=== PATIENT | female | born 1995 | race Two or more races ===

== ENCOUNTER → 2020-08-21 12:58 | Outpatient (BNVA) | payer OTHER, SELFPAY | PROVIDERS: Visit Provider Advanced Practice Midwife | DX: Z30.42 Encounter for surveillance of injectable contraceptive (principal) | CPT/HCPCS: 99211 ==

== ENCOUNTER → 2020-11-16 11:01 | Outpatient (BNVA) | payer OTHER, SELFPAY | PROVIDERS: PCP Internal Medicine; Visit Provider Advanced Practice Midwife | DX: Z30.42 Encounter for surveillance of injectable contraceptive (principal) | CPT/HCPCS: 96372; 99211; J1050 ==

== ENCOUNTER 2021-02-07 14:56 | Outpatient (REF) | payer OTHER, SELFPAY ==
[2021-02-08 09:36] LABS: CT PCR NOT DETECTED (Not Detect.); NG PCR NOT DETECTED (Not Detect.)
[2021-02-08 09:53] LABS: BV Int Neg Control Negative (Negative); BV Int Pos Control Positive (Positive)
== END 2021-02-07 14:57 | disposition home or self-care (01) ==
LOC: HO.LAB 14:56
PROVIDERS: Visit Provider Advanced Practice Midwife
DX: Z01.419 Encounter for gynecological examination (general) (routine) without abnormal findings (principal); F41.8 Other specified anxiety disorders; Z20.2 Contact with and (suspected) exposure to infections with a predominantly sexual mode of transmission; Z79.899 Other long term (current) drug therapy
CPT/HCPCS: 87480; 87491; 87510; 87591; 87660

== ENCOUNTER → 2021-02-19 14:33 | Outpatient (BNVA) | payer OTHER, SELFPAY | PROVIDERS: PCP Nurse Practitioner Family; Visit Provider Advanced Practice Midwife | DX: Z30.42 Encounter for surveillance of injectable contraceptive (principal) | CPT/HCPCS: 96372; 99211; J1050 ==

== ENCOUNTER 2021-06-28 09:02 | Outpatient (REF) | payer OTHER, SELFPAY ==
[2021-06-28 09:41] LABS: COVID-19 Test Negative (Negative)
== END 2021-06-28 09:03 | disposition home or self-care (01) ==
LOC: HO.LAB 09:02
PROVIDERS: Visit Provider Internal Medicine
DX: Z20.822 Contact with and (suspected) exposure to COVID-19 (principal)
CPT/HCPCS: 36415; 87635; C9803

== ENCOUNTER → 2021-07-24 14:36 | Outpatient (BNVA) | payer OTHER, SELFPAY | PROVIDERS: Visit Provider Advanced Practice Midwife | DX: Z30.42 Encounter for surveillance of injectable contraceptive (principal) | CPT/HCPCS: 81025; 96372; 99212 ==

== ENCOUNTER → 2021-09-10 10:00 | Outpatient (BNVA) | payer OTHER, SELFPAY | PROVIDERS: Visit Provider Advanced Practice Midwife | DX: Z30.017 Encounter for initial prescription of implantable subdermal contraceptive (principal) | CPT/HCPCS: 11981; 81025; J7307 ==

== ENCOUNTER 2022-02-19 09:42 | Outpatient (REF) | payer OTHER, SELFPAY ==
--- NOTE | ~2022-02-19 | US_ITS ---
EXAMINATION: US ABDOMEN COMPLETE CLINICAL INFORMATION: Right upper quadrant pain. COMPARISON: None TECHNIQUE: Real-time imaging of the abdominal viscera. FINDINGS: PANCREAS: Normal. ABDOMINAL AORTA: The proximal, mid, and distal segments are normal in caliber. INFERIOR VENA CAVA: Visualized portions are normal. LIVER: There is a hyperechoic area seen in the left lobe measuring 0.75 x 0.62 x 0.60 cm suggestive of hemangioma. No additional lesions seen. The liver is normal in size. The liver contour is normal. Parenchymal echogenicity is normal. There is no intrahepatic biliary duct dilatation seen. GALLBLADDER: The gallbladder wall thickness measures 0.33 cm. The gallbladder is physiologically distended. Multiple mobile gallstones are present. No evidence of gallbladder wall thickening or pericholecystic fluid. COMMON BILE DUCT: Normal in caliber measuring 0.17 cm in diameter. RIGHT KIDNEY: Normal. No hydronephrosis. No renal calculi or focal parenchymal lesions. The kidney measures 9.6 cm in maximum dimension. LEFT KIDNEY: Normal. No hydronephrosis. No renal calculi or focal parenchymal lesions. The kidney measures 10.0 cm in maximum dimension. SPLEEN: Normal. The spleen measures 8.4 cm in maximum dimension. FREE FLUID: None. US/US abdomen complete IMPRESSION: Cholelithiasis with borderline normal gallbladder wall. Small hemangioma left hepatic lobe. Rest of the abdominal ultrasound is unremarkable.
[2022-02-19 10:42] LABS: MANUAL DIFF FLAG NO
[2022-02-19 11:17] LABS: Basophils Absolute Auto 0.1 X10*3/uL (0.0-0.2); Basophils Percent Auto 0.5 % (0-2); Eosinophils Absolute Auto 0.2 X10*3/uL (0.0-0.4); Eosinophils Percent Auto 2.2 % (0-4); Hematocrit 43.3 % (37.0-47.0); Hemoglobin 14.6 g/dl (12.0-16.0); Imm Gran Abs Auto 0.03 X10*3/uL (0.00-0.03); Imm Gran Pct Auto 0.3 % (0.0-0.4); Lymphocytes Percent Auto 18.3 % (20-40); Mean Corpuscular HGB Conc 33.7 g/dl (31.0-35.0); Mean Corpuscular Hemoglobin 31.7 pg (27.0-33.0); Mean Corpuscular Volume 94.1 fL (80.0-98.0); Mean Platelet Volume 9.5 fL (9.4-12.3); Monocytes Absolute Auto 0.6 X10*3/uL (0.1-1.2); Monocytes Percent Auto 5.3 % (2-11); Neutrophils Absolute Auto 7.9 x10*3/uL (2.0-8.3); Neutrophils Percent Auto 73.4 % (45-73); Platelet Count 356 X10*3/uL (160-400); White Blood Count 10.8 X10*3/uL (4.8-10.8)
[2022-02-19 11:39] LABS: Alanine Aminotransferase 33 U/L (0-31); Albumin Level 4.5 g/dL (3.5-5.0); Alkaline Phosphatase 57 U/L (39-117); Anion Gap 10 (12-20); Aspartate Amino Transferase 22 U/L (5-31); Bilirubin Total 0.8 mg/dL (0.0-1.0); Blood Urea Nitrogen 14 mg/dL (9-16); Calcium 10.4 mg/dL (8.4-10.2); Carbon Dioxide 26 mmol/L (22-29); Chloride 106 mmol/L (96-108); Cholesterol 104 mg/dL; Estimated Glomerular Filt Rate > 60; Glucose Fasting 97 mg/dL (60-99); HDL Cholesterol 37 mg/dL; LDL Cholesterol Calculated 51 mg/dl; Potassium 4.1 mmol/L (3.3-5.1); Sodium 138 mmol/L (135-145); Total Protein 7.1 g/dL (6.5-8.0); Triglycerides 80 mg/dL
[2022-02-19 11:56] LABS: TSH reflex Free T4 2.05 uIU/mL (0.32-4.0)
== END 2022-02-19 09:43 | disposition home or self-care (01) ==
LOC: HO.US 09:42
PROVIDERS: PCP Nurse Practitioner Family; Visit Provider Nurse Practitioner Family
DX: R10.11 Right upper quadrant pain (principal); F32.9 Major depressive disorder, single episode, unspecified; F41.9 Anxiety disorder, unspecified; I10 Essential (primary) hypertension; E78.00 Pure hypercholesterolemia, unspecified; Z76.89 Persons encountering health services in other specified circumstances
CPT/HCPCS: 36415; 76700; 80053; 80061; 84443; 85025

== ENCOUNTER → 2022-03-06 09:09 | Outpatient (BNVA) | payer OTHER, SELFPAY | PROVIDERS: PCP Nurse Practitioner Family; Referring Provider Nurse Practitioner Family; Visit Provider Surgery | DX: K80.20 Calculus of gallbladder without cholecystitis without obstruction (principal) | CPT/HCPCS: 99202 ==

== ENCOUNTER 2022-04-05 07:27 | Day surgery (SDC) | payer OTHER, SELFPAY ==
[2022-03-29 13:17] VITALS: BMI 27.0
--- NOTE | 2022-04-04 08:00 | P.CONAN_ITS ---
Documented by User: Annika Stein NP 04/04/22 08:02 HPI - Anesthesia Eval Consult details Narrative: 26yo F for Cholecystectomy Laparoscopic possible open PMFSH Active Problems Active Problems: All Active Problems (Updated 03/29/22 @ 13:20 by Giselle Rodriguez RN) Encounter to establish care (Acute) Right upper quadrant abdominal pain (Acute) Allergic reaction (Acute) Cholelithiasis (Acute) Anxiety and depression (Acute) Past Medical History Medical History (Updated 04/05/22 @ 07:32 by Holly Wooten RN) COVID-19 vaccine series completed GERD (gastroesophageal reflux disease) Family History Family History Father No problems noted. Paternal Grandmother Brain tumor Mother No problems noted. Family/Other Dementia Hypertension Cancer Brother In good health Daughter In good health Surgical History Surgical History No pertinent past surgical history Social History Social History Household Members Other:: minor child Housing: [facility] Are you a primary transition of care specialist to a significant other at home: Yes Do you presently have visiting nurse or other home services: No Alcohol intake: current Alcohol intake frequency: holidays/special occasions only Patient Tobacco Use Status: Never used Tobacco e-Cigarette/Vaping Use: Never Used Substance Use Type: Marijuana service: No Current occupational status: employed Gender identity: Female Cognitive needs: No Hearing needs: No Vision needs: No Meds Allergies Allergy/AdvReac Type Severity Reaction Status Date / Time shrimp Allergy Intermediate hive Verified 03/06/22 09:18 Home Medications Medication Instructions Recorded Confirmed Last Taken Type multivitamin 1 tab PO DAILY 12/14/20 03/29/22 Unknown History etonogestrel 68 mg subdermal 1 implant subdermal ONCE 03/06/22 03/29/22 Unknown History implant (Nexplanon) Exam Exam Date and Time: April 04, 2022 0800 Height,Weight and Vital Signs: Height 4 ft 11 in Weight 60.781 kg Pertinent Lab Results Pertinent Lab Results: Laboratory Tests 02/19/22 02/19/22 10:41 10:41 WBC 10.8 Hgb 14.6 Hct 43.3 Plt Count 356 Sodium 138 Potassium 4.1 Chloride 106 Carbon Dioxide 26 BUN 14 Creatinine 0.83 Laboratory Tests 02/19/22 10:41 Calcium 10.4 H Total Bilirubin 0.8 AST 22 ALT 33 H Alkaline Phosphatase 57 Total Protein 7.1 Albumin 4.5 Assessment and Plan Assessment Anesthesia Assessment: Chart Reviewed Documented by User: Alfa Somers MD 04/05/22 13:10 [facility] Past Medical History Medical History (Updated 04/05/22 @ 07:32 by Holly Wooten RN) COVID-19 vaccine series completed GERD (gastroesophageal reflux disease) Functional capacity: independent ambulation Family History Family History Father No problems noted. Paternal Grandmother Brain tumor Mother No problems noted. Family/Other Dementia Hypertension Cancer Brother In good health Daughter In good health Family history of problems with anesthesia: No Surgical History Surgical History No pertinent past surgical history History of Problems with Anesthesia: No Social History Social History Household Members Other:: minor child [facility] Are you a primary transition of care specialist to a significant other at home: Yes Do you presently have visiting nurse or other home services: No Alcohol intake: current Alcohol intake frequency: holidays/special occasions only Patient Tobacco Use Status: Never used Tobacco e-Cigarette/Vaping Use: Never Used Substance Use Type: Marijuana service: No Current occupational status: employed Gender identity: Female Cognitive needs: No Hearing needs: No Vision needs: No Meds Allergies Allergy/AdvReac Type Severity Reaction Status Date / Time shrimp Allergy Intermediate hive Verified 03/06/22 09:18 Home Medications Medication Instructions Recorded Confirmed Last Taken Type multivitamin 1 tab PO DAILY 12/14/20 03/29/22 Unknown History etonogestrel 68 mg subdermal 1 implant subdermal ONCE 03/06/22 03/29/22 Unknown History implant (Nexplanon) Exam Airway Mallampati Class: II TM Dist: >3cm Neck ROM: Full Loose/Missing/Broken Teeth: Yes (Chipped teeth ) Heart: S1,S2 Lungs: b/l breath sounds Assessment and Plan Assessment Anesthesia Assessment: Anesthesia Plan Discussed Final Anesthetic Review Family History of Problems with Anesthesia: No History of Problems with Anesthesia: No NPO: Yes ASA Class: II Final Preanesthetic Review: Meds/Allgs Chart Reviewed, Consent Obtained/Reviewed and Anes Risks/Benef Reviewed Patient Risk: Intermediate Procedure Risk: Intermediate Anesthetic Plan Anesthetic Plan: GA Disposition: Standard PACU
[2022-04-05] VITALS (11 sets, daily range): BP systolic 115–130; BP diastolic 69–89; PULSE 71–98; RESP 16–20; TEMP 36.4–36.6; O2SAT 97–100
[2022-04-05 07:50] LABS: UPreg QC Valid YES; Urine Pregnancy NEGATIVE (NEGATIVE)
[2022-04-05] MEDS: Acetaminophen 325 MG TABLET 650 MG PO (08:03)
--- NOTE | 2022-04-05 08:04 | MHC.SHP ---
Pre-Procedural Eval Section A Date of Service: 04/05/22 Section B Chief Complaint: calculus of gallbladder Details of Present Illness: has had periodic right upper quadrant pain, with gallstones Relevant Family History (Specify if Yes): No Relevant Social History: None Present Medications: None Medical History: No relevant PMH History of Previous Operations: No relevant previous surgery Allergies: Allergies Allergy/AdvReac Type Severity Reaction Status Date / Time shrimp Allergy Intermediate hive Verified 03/06/22 09:18 Review of Systems Sugical H&P ROS: Negative: Constitution, Cardiovascular, Respiratory, Neurological, Psychiatric, Hem-Onc, Allergic/Immunologic, Gastrointestinal, Genitourinary, Musculoskeletal, Integumentary, Endocrine and Eyes/Ears/Nose/Throat Exam Surgical H&P Exam: Normal: HEENT, Normal: Heart, Normal: Lungs, Normal: Extremities, Normal: Abdomen, Normal: Skin and Normal: Neurological Plan Diagnosis/Plan: Unchanged I have reviewed the history and physical and performed a pertinent physical examination on my patient. No changes have occurred unless specified.
[2022-04-05] MEDS: Lactated Ringers 1,000 ML 100 ML IVCONT (08:10)
--- NOTE | 2022-04-05 09:55 | P.OP_ITS ---
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 In view of her symptoms she wanted to proceed with cholecystectomy. She understood the technique of laparoscopic cholecystectomy and possible open. She was aware of the risks, benefits, and alternatives. She was brought to the operating room. She was placed supine under general anesthesia via endotracheal tube. The abdomen was prepped and draped in the usual sterile fashion. A surgical time-out was done. The patient received Cefotan 2 g IV preoperatively . I made a short supraumbilical incision using blade 15. This was carried down through the full-thickness of the skin and the subcutaneous layer down to the fascia. The fascia was incised. The peritoneum was entered. Through this incision should, a Faby port was introduced. Pneumoperitoneum was introduced to a pressure of 15 mm hg. From here on, the rest of the procedure was done under vision with the 10 mm flat laparoscope. With laparoscopic visualization, I proceeded to insert a 5/12 mm port in the epigastric area below the subcostal margin by a small stab incision. Two 5 mm ports were introduced a small incisions below the subcostal margin along the anterior axillary line. Graspers were placed through these working ports. The patient was placed in head-up and [id number] position. The gallbladder was seen laparoscopically. This was noted to be supple and non inflamed. I applied a grasper at the fundus to retract the gallbladder cephalad. Another grasper applied to the pouch of the gallbladder and this was used to retract the gallbladder laterally. At this point therefore the gallbladder was being retracted in a cephalad fashion to the cystic duct on stretch. I carefully dissected the fatty areolar tissue surrounding the neck of the gallbladder and by doing so I was able to visualize the cystic duct. I carefully defined the duct using the [place] dissector to confirm its confluence with the neck of the gallbladder. By doing so was able to give a critical view of the hepatocystic triangle. There was note of a via find cystic artery alongside this. There was no other structure in the area I therefore applied clips on the cystic duct with 2 clips being applied distally. The cystic duct was transected between clips with Endo scissors. I carefully define the cystic artery. This was then clipped with 2 clips being applied distally and this was obstructive in clips as well I carefully divided across the rest of the hilum using the electrocautery spatula. At 1 point we encountered fine branch of the artery which we had to clip as well We continued to dissect across the hilum into the interface of the gallbladder wall and the liver bed. I incised the peritoneum using electrocautery with the spatula define a plane of dissection between the gallbladder wall and the liver bed using a combination of blunt dissection with the tip of the spatula and electrocautery. Fully the gallbladder along this well-defined plane of dissection all the way to the fundus until the entire gallbladder was completely . The gallbladder was retrieved through an endobag through the umbilical incision I reinserted all ports and re-insufflated. I examined the liver bed and the subhepatic space. There was no evidence of any bleeding I examined all 4 quadrants. There was no other pathology or any evidence of any bowel injury Once hemostasis was ensured, I desufflated the port sites. I removed all ports under vision with the laparoscope. The umbilical port was removed last. The fascia of the umbilical incision was closed with [id number] Dexon 0 stitch. Skin closure was achieved on all incisions using Dexon 4-0 subcuticular running sutures. Steri-Strips and dressings were applied. All incisions were infiltrated with Marcaine 0.5% for postop analgesia. The procedure was then completed The patient tolerated procedure well. There were no complications noted. Initial and final counts of sponges and instruments were correct. Estimated blood loss was about 30 cc. The patient is extubated without difficulty and transferred to the recovery room with stable vital signs.
[2022-04-05] MEDS: fentaNYL citrate/PF 100 MCG/2 ML VIAL 25 MCG IVPUSH (11:13)
== END 2022-04-05 12:15 | disposition home or self-care (01) ==
PROVIDERS: Nurse Practitioner; PCP Nurse Practitioner Family; Visit Provider Surgery
PROC: 0FT44ZZ Resection of Gallbladder, Percutaneous Endoscopic Approach (ICD-10-PCS; CPT 47562; principal; 2022-04-05 09:00)
DX: K80.10 Calculus of gallbladder with chronic cholecystitis without obstruction (principal); F41.8 Other specified anxiety disorders; K21.9 Gastro-esophageal reflux disease without esophagitis; Z79.899 Other long term (current) drug therapy
CPT/HCPCS: 47562; 81025; 88304; J1100; J1885; J2250; J2405; J2550; J3010

== ENCOUNTER 2022-04-26 13:33 | Emergency (ER) | payer OTHER, SELFPAY ==
[2022-04-26 13:55] VITALS: BP 123/77; PULSE 77; RESP 18; TEMP 36.4; O2SAT 100; BMI 27.4
[2022-04-26] MEDS: Ondansetron ODT 4 MG TAB.RAPDIS TRANSLINGU (14:00)
--- NOTE | 2022-04-26 15:10 | ED.SKABFB ---
HPI - Skin/Abscess/Foreign Bdy General Chief complaint: Skin/Abscess/Foreign Body Stated complaint: Bug bite R foot swollen/nausea Time Seen by Provider: 04/26/22 15:10 History of Present Illness HPI narrative: Patient complains of bug bite to right foot which itches She has no shortness of breath no swelling of throat no difficulty breathing or swallowing no other rash Related Data Home Medications Medication Instructions Recorded Confirmed multivitamin 1 tab PO DAILY 12/14/20 03/29/22 etonogestrel 68 mg subdermal 1 implant subdermal ONCE 03/06/22 03/29/22 implant (Nexplanon) Previous Rx's Medication Instructions Recorded epinephrine 0.3 mg/0.3 mL 0.3 mg (0.3 mL) IM Q10M PRN 01/24/22 injection, auto-injector (EpiPen) anaphylaxis #1 ea loratadine 10 mg tablet 10 mg PO DAILY #30 tabs 01/24/22 omeprazole 20 mg capsule,delayed 20 mg PO DAILY #30 caps 01/24/22 release fluticasone propionate 50 1 spray intranasal DAILY #16 mL 03/27/22 mcg/actuation nasal spray,suspension oxycodone-acetaminophen 5 mg-325 1 tab PO Q4-6H PRN pain #30 tabs 04/05/22 mg tablet (Percocet) hydrocortisone 2.5 % topical cream 1 appl topical BID PRN itching #20 04/26/22 grams Allergies Allergy/AdvReac Type Severity Reaction Status Date / Time shrimp Allergy Intermediate hive Verified 04/18/22 09:13 Review of Systems Review of Systems: Positive right foot but bite Negatives are no fever no chills no dizziness no weakness no fainting no feeling faint no throat swelling no difficulty breathing or swallowing no difficulty speaking no chest pain no shortness of breath no abdominal pain no vomiting no other rash no joint swelling Yes all other systems are reviewed and are negative PMFSH Past Medical History Source: nursing notes reviewed Medical History Anxiety and depression COVID-19 vaccine series completed GERD (gastroesophageal reflux disease) Surgical History History of laparoscopic cholecystectomy Family History Family History Father No problems noted. Paternal Grandmother Brain tumor Mother No problems noted. Family/Other Dementia Hypertension Cancer Brother In good health Daughter In good health Social History Social History Household Members Other:: minor child Housing: Condominium Are you a primary janitor caretaker to a significant other at home: Yes Do you presently have visiting nurse or other home services: No Alcohol intake: current Alcohol intake frequency: holidays/special occasions only Patient Tobacco Use Status: Never used Tobacco e-Cigarette/Vaping Use: Never Used Substance Use Type: Marijuana Advance Directives: No Advance Directives Information Provided: No service: No Current occupational status: employed Gender identity: Female Cognitive needs: No Hearing needs: No Vision needs: No Physical Exam Vital Signs: Vital Signs: Last Vital Signs Temp 97.5 F 04/26/22 13:55 Pulse 77 04/26/22 13:55 Resp 18 04/26/22 13:55 BP 123/77 04/26/22 13:55 Pulse Ox 100 04/26/22 13:55 BMI result Body Mass Index 27.4 General appearance comfortable no distress Head is normocephalic atraumatic Eyes pupils equal round reactive to light no redness no discharge The pharynx no redness no swelling no swelling of tongue uvula or lips, no drooling voice is normal, membranes are moist Neck is supple Chest is clear to auscultation with full symmetrical equal breath sounds bilaterally Heart no murmur Extremities full range of motion x4 The right foot had a dime-sized area of redness and mild induration no tenderness around the area of the insect bite there was no other erythema no other swelling, she walks easily, skin is intact Skin no other rash except the right foot Course Course Course Narrative: Patient with a local reaction to a biting insect, no sign of anaphylaxis or any systemic reaction Discharge Plan Discharge Clinical Impression: Insect bite Patient Disposition: Home, Self-Care Additional Instructions: There is no sign of any significant allergic reaction, no sign of any dangerous reaction This is a mild local reaction within the right foot to the insect bite As it itches we gave an antihistamine Return any time any worse condition or any concerns Prescriptions: New hydrocortisone 2.5 % cream 1 appl topical BID PRN (Reason: itching) Qty: 20 0RF No Action fluticasone propionate 50 mcg/actuation spray,suspension 1 spray intranasal DAILY Qty: 16 0RF oxycodone-acetaminophen [Percocet] 5-325 mg tablet 1 tab PO Q4-6H PRN (Reason: pain) Qty: 30 0RF Rx Instructions: Partial Fill upon patient request. multivitamin Tablet 1 tab PO DAILY epinephrine [EpiPen] 0.3 mg/0.3 mL auto-injector 0.3 mg IM Q10M PRN (Reason: anaphylaxis) Qty: 1 1RF Rx Instructions: for 2 doses loratadine 10 mg tablet 10 mg PO DAILY Qty: 30 2RF omeprazole 20 mg capsule,delayed release(DR/EC) 20 mg PO DAILY Qty: 30 1RF Nexplanon 68 mg implant 1 implant subdermal ONCE
[2022-04-26] MEDS: Loratadine 10 MG TABLET PO (15:24)
== END 2022-04-26 16:28 | disposition home or self-care (01) ==
PROVIDERS: Emergency Provider Emergency Medicine; PCP Nurse Practitioner Family
DX: S90.861A Insect bite (nonvenomous), right foot, initial encounter (principal); W57.XXXA Bitten or stung by nonvenomous insect and other nonvenomous arthropods, initial encounter; Y93.9 Activity, unspecified; Y92.511 Restaurant or cafe as the place of occurrence of the external cause; Y99.0 Civilian activity done for income or pay
CPT/HCPCS: 99283

== ENCOUNTER 2022-08-27 10:11 | Outpatient (REF) | payer OTHER, SELFPAY ==
[2022-08-27 10:23] LABS: MANUAL DIFF FLAG NO
[2022-08-27 10:35] LABS: Basophils Absolute Auto 0.1 X10*3/uL (0.0-0.2); Basophils Percent Auto 0.4 % (0-2); Eosinophils Absolute Auto 0.1 X10*3/uL (0.0-0.4); Hematocrit 40.6 % (37.0-47.0); Hemoglobin 13.1 g/dl (12.0-16.0); Imm Gran Abs Auto 0.05 X10*3/uL (0.00-0.03); Imm Gran Pct Auto 0.4 % (0.0-0.4); Lymphocytes Absolute Auto 2.1 X10*3/uL (1.2-4.9); Lymphocytes Percent Auto 15.2 % (20-40); Mean Corpuscular HGB Conc 32.3 g/dl (31.0-35.0); Mean Corpuscular Hemoglobin 30.1 pg (27.0-33.0); Mean Corpuscular Volume 93.3 fL (80.0-98.0); Monocytes Absolute Auto 0.7 X10*3/uL (0.1-1.2); Monocytes Percent Auto 5.3 % (2-11); Neutrophils Absolute Auto 10.8 x10*3/uL (2.0-8.3); Neutrophils Percent Auto 77.7 % (45-73); Platelet Count 328 X10*3/uL (160-400); Red Blood Count 4.35 X10*6/uL (4.20-5.50); Red Cell Distribution Width 12.2 % (11.0-16.0); White Blood Count 13.9 X10*3/uL (4.8-10.8)
[2022-08-27 11:14] LABS: Alanine Aminotransferase 93 U/L (0-31); Alkaline Phosphatase 61 U/L (39-117); Anion Gap 10 (12-20); Aspartate Amino Transferase 37 U/L (5-31); Bilirubin Total 0.5 mg/dL (0.0-1.0); Blood Urea Nitrogen 11 mg/dL (9-16); Calcium 9.4 mg/dL (8.4-10.2); Carbon Dioxide 24 mmol/L (22-29); Chloride 107 mmol/L (96-108); Estimated Glomerular Filt Rate > 60; Glucose Random 91 mg/dL (60-115); Sodium 137 mmol/L (135-145); Total Protein 6.3 g/dL (6.5-8.0)
[2022-08-27 11:37] LABS: Lipase 35 U/L (8-78)
== END 2022-08-27 10:12 | disposition home or self-care (01) ==
LOC: HO.LAB 10:11
PROVIDERS: PCP Nurse Practitioner Family; Visit Provider Nurse Practitioner Family
DX: R19.7 Diarrhea, unspecified (principal)
CPT/HCPCS: 36415; 80053; 83690; 85025

== ENCOUNTER 2022-09-02 | Outpatient (REF) | payer OTHER, SELFPAY ==
[2022-09-03 13:36] LABS: Leukocytes Stool Qualitative NEGATIVE (NEGATIVE)
[2022-09-03 13:48] LABS: CDiff Gene PCR NEGATIVE (Negative)
== END 2022-09-02 00:01 | disposition home or self-care (01) ==
LOC: HO.LNP
PROVIDERS: Visit Provider Nurse Practitioner Family
DX: R19.7 Diarrhea, unspecified (principal)
CPT/HCPCS: 87177; 87209; 87493; 89055

== ENCOUNTER 2022-09-16 10:13 | Outpatient (REF) | payer OTHER, SELFPAY ==
[2022-09-16 10:25] LABS: MANUAL DIFF FLAG NO
[2022-09-16 10:59] LABS: Basophils Percent Auto 0.3 % (0-2); Eosinophils Absolute Auto 0.1 X10*3/uL (0.0-0.4); Eosinophils Percent Auto 1.2 % (0-4); Hematocrit 41.4 % (37.0-47.0); Hemoglobin 13.6 g/dl (12.0-16.0); Imm Gran Abs Auto 0.05 X10*3/uL (0.00-0.03); Imm Gran Pct Auto 0.4 % (0.0-0.4); Lymphocytes Absolute Auto 2.1 X10*3/uL (1.2-4.9); Lymphocytes Percent Auto 17.3 % (20-40); Mean Corpuscular HGB Conc 32.9 g/dl (31.0-35.0); Mean Corpuscular Hemoglobin 30.5 pg (27.0-33.0); Mean Corpuscular Volume 92.8 fL (80.0-98.0); Mean Platelet Volume 9.8 fL (9.4-12.3); Monocytes Absolute Auto 0.6 X10*3/uL (0.1-1.2); Monocytes Percent Auto 4.6 % (2-11); Neutrophils Absolute Auto 9.2 x10*3/uL (2.0-8.3); Neutrophils Percent Auto 76.2 % (45-73); Platelet Count 360 X10*3/uL (160-400); Red Blood Count 4.46 X10*6/uL (4.20-5.50); Red Cell Distribution Width 12.5 % (11.0-16.0)
[2022-09-16 12:30] LABS: HBS Num1 > 1000.00 mIU/mL (0-7.99); HBc Num1 0.08 S/CO (0.00-0.79); HBsAGNum1 0.35 S/CO (0.00-0.99); Hepatitis A Antibody IgM 0.11 Index (0-0.79); Hepatitis B Core Antibody Nonreactive (Nonreactive); Hepatitis B Surface Antigen Negative (Negative); ~HepC Num1 0.23 S/CO (0.00-0.79); ~Hepatitis A Antibody IgM Nonreactive (Nonreactive); ~Hepatitis B Surface Antibody REACTIVE (Nonreactive); ~Hepatitis C Antibody Nonreactive (Nonreactive)
== END 2022-09-16 10:14 | disposition home or self-care (01) ==
LOC: HO.LAB 10:13
PROVIDERS: PCP Nurse Practitioner Family; Visit Provider Nurse Practitioner Family
DX: R79.89 Other specified abnormal findings of blood chemistry (principal); R19.7 Diarrhea, unspecified; D72.829 Elevated white blood cell count, unspecified
CPT/HCPCS: 36415; 85025; 86704; 86706; 86709; 86803; 87340

== ENCOUNTER → 2022-10-16 14:34 | Outpatient (BNVA) | payer OTHER, SELFPAY | PROVIDERS: PCP Nurse Practitioner Family; Visit Provider Physician Assistant | DX: K21.9 Gastro-esophageal reflux disease without esophagitis (principal); R14.0 Abdominal distension (gaseous) | CPT/HCPCS: 99202 ==

== ENCOUNTER 2022-12-23 10:05 | Outpatient (REF) | payer OTHER, SELFPAY ==
--- NOTE | ~2022-12-23 | US_ITS ---
EXAMINATION: US ABDOMEN COMPLETE CLINICAL INFORMATION: Abdominal distension (gaseous). COMPARISON: Ultrasound abdomen complete 02/19/2022. TECHNIQUE: Real-time imaging of the abdominal viscera. FINDINGS: PANCREAS: Normal. ABDOMINAL AORTA: The proximal, mid, and distal segments are normal in caliber. INFERIOR VENA CAVA: Visualized portions are normal. LIVER: The liver is normal in size. The liver contour is normal. Parenchymal echogenicity is normal. There is a left hepatic lobe lesion measuring 1.2 x 0.8 x 0.8 cm suggestive of hemangioma. No additional lesions seen. No intrahepatic ductal dilatation. There is no intrahepatic biliary duct dilatation seen. Normal hepatopedal flow seen in middle portal vein on Doppler exam GALLBLADDER: Surgically absent. COMMON BILE DUCT: Normal in caliber measuring 0.4 cm in diameter. RIGHT KIDNEY: Normal. No hydronephrosis. No renal calculi or focal parenchymal lesions. The kidney measures 9.6 cm in maximum dimension. LEFT KIDNEY: Normal. No hydronephrosis. No renal calculi or focal parenchymal lesions. The kidney measures 8.7 cm in maximum dimension. SPLEEN: Normal. The spleen measures 8.3 cm in maximum dimension. FREE FLUID: None. ADDITIONAL FINDINGS: There is minimal free fluid seen adjacent to the gallbladder US/US abdomen complete IMPRESSION: Gallbladder has been surgically removed. Left hepatic lobe hemangioma is stable to last ultrasound. Minimal free fluid adjacent to the gallbladder fossa.
[2022-12-23 10:49] LABS: MANUAL DIFF FLAG NO
[2022-12-23 12:07] LABS: Basophils Absolute Auto 0.1 X10*3/uL (0.0-0.2); Basophils Percent Auto 0.6 % (0-2); Eosinophils Absolute Auto 0.2 X10*3/uL (0.0-0.4); Eosinophils Percent Auto 1.5 % (0-4); Hematocrit 42.1 % (37.0-47.0); Imm Gran Abs Auto 0.05 X10*3/uL (0.00-0.03); Imm Gran Pct Auto 0.5 % (0.0-0.4); Lymphocytes Percent Auto 18.6 % (20-40); Mean Corpuscular HGB Conc 33.3 g/dl (31.0-35.0); Mean Corpuscular Volume 93.3 fL (80.0-98.0); Monocytes Absolute Auto 0.6 X10*3/uL (0.1-1.2); Monocytes Percent Auto 5.7 % (2-11); Neutrophils Absolute Auto 7.8 x10*3/uL (2.0-8.3); Neutrophils Percent Auto 73.1 % (45-73); Platelet Count 354 X10*3/uL (160-400); Red Blood Count 4.51 X10*6/uL (4.20-5.50); Red Cell Distribution Width 12.3 % (11.0-16.0); White Blood Count 10.7 X10*3/uL (4.8-10.8)
[2022-12-23 12:51] LABS: Alanine Aminotransferase 163 U/L (0-31); Albumin Level 4.3 g/dL (3.5-5.0); Alkaline Phosphatase 64 U/L (39-117); Anion Gap 11 (12-20); Aspartate Amino Transferase 68 U/L (5-31); Bilirubin Total 0.7 mg/dL (0.0-1.0); Blood Urea Nitrogen 13 mg/dL (9-16); Calcium 9.4 mg/dL (8.4-10.2); Carbon Dioxide 27 mmol/L (22-29); Chloride 105 mmol/L (96-108); Estimated Glomerular Filt Rate > 60; Glucose Random 84 mg/dL (60-115); Sodium 139 mmol/L (135-145); Total Protein 6.7 g/dL (6.5-8.0)
[2022-12-23 12:55] LABS: Thyroid Stimulating Hormone 1.42 uIU/mL (0.32-4.0)
== END 2022-12-23 10:06 | disposition home or self-care (01) ==
LOC: HO.US 10:05
PROVIDERS: PCP Nurse Practitioner Family; Visit Provider Physician Assistant
DX: R10.11 Right upper quadrant pain (principal); R14.0 Abdominal distension (gaseous); K52.9 Noninfective gastroenteritis and colitis, unspecified; K59.09 Other constipation
CPT/HCPCS: 36415; 76700; 80053; 84443; 85025

== ENCOUNTER 2023-06-12 09:15 | Outpatient (AMB) | payer OTHER, SELFPAY ==
[2023-06-12 09:22] VITALS: BP 114/72; BMI 27.9
--- NOTE | 2023-06-12 09:22 | A.OFFVIS_ITS ---
Intake Vital Signs 06/12/23 09:22 Height 4 ft 11 in Weight 138 lb BMI 27.9 BP 114/72 Intake Visit Reasons: AUB Intake Note: heavy bleeding with Nexplanon The patient agreed to use of a medical management trainer during this encounter. Scribed for WINNIE Smith by Shirin Armenta medical management trainer, on 06/12/2023 at 9:44 am EST. Integrated Campaign Manager: Integrated Campaign Manager Present (Ernestine) Allergies shrimp Allergy (Intermediate, Verified 06/12/23 09:22) hive Is last menstrual period known: Yes Last menstrual period: 06/04/23 HPI HPI Comments History of Present Illness Details She is here today for heavy breakthrough bleeding and spotting with Nexplanon and lasting 4 days from since mid January until now. Complaints of mood changes and she prolonged care with hopes that it would stop but it has not. Reports stress from cholecystectomy and grief from the loss of her grandmother. Reports pelvic pain when she wears tampon for too long. Last pap smear 04/05/22. Believes she was exposed and positive for Hepatitis when she was 16 and was treated. She went to her follow up and was told she was good. [facility] Medical History Anxiety and depression Breakthrough bleeding on Nexplanon Cholelithiasis COVID-19 vaccine series completed GERD (gastroesophageal reflux disease) Pelvic pain Vaginal odor Surgical History History of laparoscopic cholecystectomy Family History Father No problems noted. Paternal Grandmother Brain tumor Mother No problems noted. Family/Other Dementia Hypertension Cancer Brother In good health Daughter In good health Social History Household Members Other:: minor child Housing: Condominium Are you a primary neonatal intensive care nurse to a significant other at home: Yes Do you presently have visiting nurse or other home services: No Alcohol intake: current Alcohol intake frequency: holidays/special occasions only Patient Tobacco Use Status: Never used Tobacco e-Cigarette/Vaping Use: Never Used Substance Use Type: Marijuana service: No Current occupational status: employed Gender identity: Female Cognitive needs: No Hearing needs: No Vision needs: No Female Reproductive History Menstrual Age of Menarche: 14 Date of last menstrual period: 06/04/23 control method: implanted (Nexplanon 08/2021) Physical Exam Vital Signs: Last Vital Signs BP 114/72 06/12/23 09:22 BMI result Body Mass Index 27.9 Const General: cooperative, healthy appearing, comfortable, no acute distress, well developed, alert and awake Other: pap smear obtained today. General: Yes bladder normal to palpation External Female Exam: normal external appearance and normal appearance of the urethra Speculum Exam - Vagina: normal appearance of the vagina, normal palpation, normal vaginal discharge and other (moderate amount of blood) Speculum Exam - Cervix: normal appearance of the cervix and normal palpation Bimanual exam- vagina & uterus: normal bimanual exam, normal palpation, bladder normal to palpation and normal palpation Bimanual Exam- Adnexa, other: normal adnexae and no masses Results AMB Test Urine AMB Test Urine Negative Last Edit by PRISCA Paul on 06/12/23 09:35 Results Reviewed Results Reviewed: Laboratory Last Values [facility]st Clinic Negative 06/12/23 09:34 Assessment & Plan Assessment & Plan (1) Breakthrough bleeding on Nexplanon: Code(s): N92.1 - Excessive and frequent menstruation with irregular cycle; Z97.5 - Presence of (intrauterine) contraceptive device Plan: Discussed: Labs ordered. Pap obtained today. BV testing and GC/CT panel today. STD blood work ordered. Await results and treat accordingly. All of her questions and concerns were addressed to the best of my ability and shared decision making. She is agreeable to plan of care. (2) Pelvic pain: Code(s): R10.2 - Pelvic and perineal pain Plan: Pelvic US ordered. Follow up in person for results. Advised to change tampons as recommended by location analyst (every 3-4 hours). (3) Vaginal odor: Code(s): N89.8 - Other specified noninflammatory disorders of vagina (4) Abnormal uterine bleeding (AUB): Code(s): N93.9 - Abnormal uterine and vaginal bleeding, unspecified Orders: Orders US pelvic and transvaginal Today N92.1 - Excessive and frequent menstruation with irregular cycle, R10.2 - Pelvic and perineal pain, Z97.5 - Presence of (intrauterine) contraceptive device Thyroid Stimulating Hormone Today N92.1 - Excessive and frequent menstruation with irregular cycle, N93.9 - Abnormal uterine and vaginal bleeding, unspecified, R10.2 - Pelvic and perineal pain, Z97.5 - Presence of (intrauterine) contraceptive device Complete Blood Count no Diff Today N92.1 - Excessive and frequent menstruation with irregular cycle, N93.9 - Abnormal uterine and vaginal bleeding, unspecified, R10.2 - Pelvic and perineal pain, Z97.5 - Presence of (intrauterine) contraceptive device Bacterial Vaginosis Panel Today N89.8 - Other specified noninflammatory disorders of vagina, N92.1 - Excessive and frequent menstruation with irregular cycle, R10.2 - Pelvic and perineal pain, Z97.5 - Presence of (intrauterine) contraceptive device CT NG by PCR Today N89.8 - Other specified noninflammatory disorders of vagina, N92.1 - Excessive and frequent menstruation with irregular cycle, R10.2 - Pelvic and perineal pain, Z97.5 - Presence of (intrauterine) contraceptive device Hepatitis B Core Antibody Today Z20.2 - Contact with and (suspected) exposure to infections with a predominantly sexual mode of transmission Hepatitis C Antibody Today Z20.2 - Contact with and (suspected) exposure to infections with a predominantly sexual mode of transmission HIV Ab/Ag Today Z20.2 - Contact with and (suspected) exposure to infections with a predominantly sexual mode of transmission Syphilis Screen Today Z20.2 - Contact with and (suspected) exposure to infections with a predominantly sexual mode of transmission AMB HCG Urine Test Today Z32.02 - Encounter for test, result negative Pap Smear Today N92.1 - Excessive and frequent menstruation with irregular cycle, Z97.5 - Presence of (intrauterine) contraceptive device Coding Level of Care Code Est Pt Level 4 (13242) Diagnoses Breakthrough bleeding on Nexplanon N92.1; Z97.5 Pelvic pain R10.2 Vaginal odor N89.8 Abnormal uterine bleeding (AUB) N93.9
== END 2023-06-12 10:02 | disposition home or self-care (01) ==
LOC: HO.HWS 09:15
PROVIDERS: PCP Nurse Practitioner Family; Visit Provider Advanced Practice Midwife
DX: N92.1 Excessive and frequent menstruation with irregular cycle (principal); Z97.5 Presence of (intrauterine) contraceptive device; R10.2 Pelvic and perineal pain; N89.8 Other specified noninflammatory disorders of vagina; N93.9 Abnormal uterine and vaginal bleeding, unspecified; Z32.02 Encounter for pregnancy test, result negative
CPT/HCPCS: 99214

== ENCOUNTER 2023-06-12 09:15 | Outpatient (REF) | payer OTHER, SELFPAY ==
[2023-06-13 13:48] LABS: CT PCR DETECTED (Not Detect.); NG PCR NOT DETECTED (Not Detect.)
[2023-06-13 15:44] LABS: BV Int Neg Control Negative (Negative); BV Int Pos Control Positive (Positive)
== END 2023-06-12 09:16 | disposition home or self-care (01) ==
LOC: HO.LNP 09:15
PROVIDERS: PCP Nurse Practitioner Family; Visit Provider Advanced Practice Midwife
DX: N92.1 Excessive and frequent menstruation with irregular cycle (principal); R10.2 Pelvic and perineal pain; N89.8 Other specified noninflammatory disorders of vagina; N93.9 Abnormal uterine and vaginal bleeding, unspecified; Z97.5 Presence of (intrauterine) contraceptive device
CPT/HCPCS: 0353U; 81025; 87480; 87510; 87660; 88142; 99212

== ENCOUNTER 2023-06-12 09:53 | Outpatient (REF) | payer OTHER, SELFPAY ==
[2023-06-12 10:45] LABS: Hematocrit 40.5 % (37.0-47.0); Hemoglobin 13.1 g/dl (12.0-16.0); Mean Corpuscular HGB Conc 32.3 g/dl (31.0-35.0); Mean Corpuscular Hemoglobin 30.4 pg (27.0-33.0); Mean Platelet Volume 9.4 fL (9.4-12.3); Platelet Count 342 X10*3/uL (160-400); Red Blood Count 4.31 X10*6/uL (4.20-5.50); Red Cell Distribution Width 12.2 % (11.0-16.0); White Blood Count 11.9 X10*3/uL (4.8-10.8)
[2023-06-12 11:58] LABS: Thyroid Stimulating Hormone 1.53 uIU/mL (0.32-4.0)
[2023-06-12 11:59] LABS: HIV AB/AG Nonreactive (Nonreactive); HIV Num 1 0.05 S/CO (0.00-0.99); Hepatitis B Core Antibody Nonreactive (Nonreactive); ~HepC Num1 0.14 S/CO (0.00-0.79); ~Hepatitis C Antibody Nonreactive (Nonreactive)
[2023-06-13 03:46] LABS: Syphilis Screen Nonreactive (Nonreactive)
== END 2023-06-12 09:54 | disposition home or self-care (01) ==
LOC: HO.LAB 09:53
PROVIDERS: PCP Nurse Practitioner Family; Visit Provider Advanced Practice Midwife
DX: Z11.4 Encounter for screening for human immunodeficiency virus [HIV] (principal); N92.1 Excessive and frequent menstruation with irregular cycle; R10.2 Pelvic and perineal pain; Z20.2 Contact with and (suspected) exposure to infections with a predominantly sexual mode of transmission; Z97.5 Presence of (intrauterine) contraceptive device
CPT/HCPCS: 84443; 85027; 86704; 86780; 86803; 87389

== ENCOUNTER 2023-06-25 12:43 | Outpatient (REF) | payer OTHER, SELFPAY ==
--- NOTE | ~2023-06-25 | US_ITS ---
EXAMINATION: US PELVIS COMPLETE CLINICAL INFORMATION: Excessive and frequent menstruation with irregular cycle COMPARISON: Pelvic ultrasound 06/28/2013 TECHNIQUE: Transabdominal and transvaginal imaging was performed. FINDINGS: The uterus is of normal size and echogenicity measuring 7.8 x 4.1 x 4.8 cm. A regular homogeneous endometrium is identified measuring 0.6 cm. The right ovary measures 5.7 x 3.0 x 3.0 cm for a volume of 26.9 mL and is remarkable for a 3.5 x 2.6 x 2.7 cm cystic lesion with lacelike internal reticulation compatible with a hemorrhagic cyst. The left ovary is unremarkable in appearance and measures 3.2 x 1.5 x 2.7 cm for a volume of 6.8 mL. There is small physiologic volume simple pelvic free fluid. US/US pelvic and transvaginal IMPRESSION: A 3.5 cm hemorrhagic cyst in the right ovary for which no follow-up imaging is recommended. Otherwise unremarkable pelvic ultrasound.
== END 2023-06-25 12:44 | disposition home or self-care (01) ==
LOC: HO.US 12:43
PROVIDERS: PCP Nurse Practitioner Family; Visit Provider Advanced Practice Midwife
DX: N92.1 Excessive and frequent menstruation with irregular cycle (principal); R10.2 Pelvic and perineal pain; Z97.5 Presence of (intrauterine) contraceptive device
CPT/HCPCS: 76830; 76856

== ENCOUNTER 2023-07-16 15:39 | Outpatient (REF) | payer OTHER, SELFPAY | END 2023-07-16 15:40 | disposition home or self-care (01) | LOC: HO.LAB 15:39 | PROVIDERS: PCP Nurse Practitioner Family; Visit Provider Advanced Practice Midwife | DX: N83.201 Unspecified ovarian cyst, right side (principal); Z20.2 Contact with and (suspected) exposure to infections with a predominantly sexual mode of transmission; N76.0 Acute vaginitis; B96.89 Other specified bacterial agents as the cause of diseases classified elsewhere; N92.1 Excessive and frequent menstruation with irregular cycle; Z97.5 Presence of (intrauterine) contraceptive device; Z71.2 Person consulting for explanation of examination or test findings | CPT/HCPCS: 99212 ==

== ENCOUNTER 2023-07-16 15:39 | Outpatient (AMB) | payer OTHER, SELFPAY ==
--- NOTE | 2023-07-16 15:40 | A.OFFVIS_ITS ---
Intake Vital Signs 07/16/23 15:41 Height 4 ft 11 in Weight 136 lb BMI 27.5 BP 104/60 Intake Visit Reasons: US/Lab/IWONA follow up Intake Note: The patient agreed to use of a biomedical equipment technician during this encounter. Scribed for WINNIE Smith by Shirin Armenta biomedical equipment technician, on 07/16/2023 at 3:50 pm EST. Pressurizer: Pressurizer Present (Ernestine) Allergies shrimp Allergy (Intermediate, Verified 07/16/23 15:43) hive HPI HPI Comments History of Present Illness Details She is here to discuss US, Lab results and IWONA for BV and GC/CT. Reports slight brown/landa discharge and took RX for BV and GC/CT. Reports partner tested negative but is not interested in further sexual contact. Admits slight right sided pelvic pain. PFS Medical History Right ovarian cyst Breakthrough bleeding on Nexplanon GERD (gastroesophageal reflux disease) COVID-19 vaccine series completed Cholelithiasis Anxiety and depression Surgical History History of laparoscopic cholecystectomy Family History Father No problems noted. Paternal Grandmother Brain tumor Mother No problems noted. Family/Other Dementia Hypertension Cancer Brother In good health Daughter In good health Social History Household Members Other:: minor child Housing: Condominium Are you a primary animal daycare provider to a significant other at home: Yes Do you presently have visiting nurse or other home services: No Alcohol intake: current Alcohol intake frequency: holidays/special occasions only Patient Tobacco Use Status: Never used Tobacco e-Cigarette/Vaping Use: Never Used Substance Use Type: Marijuana service: No Current occupational status: employed Gender identity: Female Cognitive needs: No Hearing needs: No Vision needs: No Female Reproductive History Menstrual Age of Menarche: 14 control method: implanted History of STI: Yes (06/12/23 +chl) Physical Exam Vital Signs: Last Vital Signs BP 104/60 07/16/23 15:41 BMI result Body Mass Index 27.5 Const General: cooperative, healthy appearing, comfortable, no acute distress, well d eveloped, alert and awake Other: no tenderness or fullness with exam General: Yes bladder normal to palpation External Female Exam: normal external appearance and normal appearance of the urethra Speculum Exam - Vagina: normal appearance of the vagina, normal palpation and normal vaginal discharge Speculum Exam - Cervix: normal appearance of the cervix and normal palpation Bimanual exam- vagina & uterus: normal bimanual exam, normal palpation, bladder normal to palpation and normal palpation Bimanual Exam- Adnexa, other: normal adnexae and no masses Results Reviewed Results Reviewed: EXAMINATION: US PELVIS COMPLETE CLINICAL INFORMATION: Excessive and frequent menstruation with irregular cycle COMPARISON: Pelvic ultrasound 06/28/2013 TECHNIQUE: Transabdominal and transvaginal imaging was performed. FINDINGS: The uterus is of normal size and echogenicity measuring 7.8 x 4.1 x 4.8 cm. A regular homogeneous endometrium is identified measuring 0.6 cm. The right ovary measures 5.7 x 3.0 x 3.0 cm for a volume of 26.9 mL and is remarkable for a 3.5 x 2.6 x 2.7 cm cystic lesion with lacelike internal reticulation compatible with a hemorrhagic cyst. The left ovary is unremarkable in appearance and measures 3.2 x 1.5 x 2.7 cm for a volume of 6.8 mL. There is small physiologic volume simple pelvic free fluid. US/US pelvic and transvaginal IMPRESSION: A 3.5 cm hemorrhagic cyst in the right ovary for which no follow-up imaging is recommended. Otherwise unremarkable pelvic ultrasound. Laboratory Tests 06/12/23 06/12/23 10:14 16:06 Hgb 13.1 Hct 40.5 TSH 1.53 Chlam trachomat DNA PCR DETECTED A Gardnerella DNA Probe Positive A Assessment & Plan Assessment & Plan (1) Encounter to discuss test results: Code(s): Z71.2 - Person consulting for explanation of examination or test findings Plan: Discussed: US findings of: A 3.5 cm hemorrhagic cyst in the right ovary for which no follow-up imaging is recommended. Otherwise unremarkable pelvic ultrasound. If any increase in pain to call the office, if severe go to the Ed. All of her questions and concerns were addressed to the best of my ability and shared decision making. She is agreeable to plan of care. (2) Breakthrough bleeding on Nexplanon: Code(s): N92.1 - Excessive and frequent menstruation with irregular cycle; Z97.5 - Presence of (intrauterine) contraceptive device Plan: Monitor VB. If VB has increased contact office. (3) BV (bacterial vaginosis): Code(s): N76.0 - Acute vaginitis; B96.89 - Other specified bacterial agents as the cause of diseases classified elsewhere Plan: BV testing and GC/CT panel done today. Await results and treat accordingly. Encouraged to use condoms for STD prevention. (4) Chlamydia contact, treated: Code(s): Z20.2 - Contact with and (suspected) exposure to infections with a predominantly sexual mode of transmission (5) Gonorrhea contact, treated: Code(s): Z20.2 - Contact with and (suspected) exposure to infections with a predominantly sexual mode of transmission (6) Right ovarian cyst: Code(s): N83.201 - Unspecified ovarian cyst, right side Orders: Orders Bacterial Vaginosis Panel Today B96.89 - Other specified bacterial agents as the cause of diseases classified elsewhere, N76.0 - Acute vaginitis CT NG by PCR Today Z20.2 - Contact with and (suspected) exposure to infections with a predominantly sexual mode of transmission Coding Level of Care Code Est Pt Level 3 (70172) Diagnoses Encounter to discuss test results Z71.2 Breakthrough bleeding on Nexplanon N92.1; Z97.5 BV (bacterial vaginosis) N76.0; B96.89 Chlamydia contact, treated Z20.2 Gonorrhea contact, treated Z20.2 Right ovarian cyst N83.201
[2023-07-16 15:41] VITALS: BP 104/60; BMI 27.5
== END 2023-07-16 15:57 | disposition home or self-care (01) ==
PROVIDERS: PCP Nurse Practitioner Family; Visit Provider Advanced Practice Midwife
DX: Z71.2 Person consulting for explanation of examination or test findings (principal); N92.1 Excessive and frequent menstruation with irregular cycle; Z97.5 Presence of (intrauterine) contraceptive device; N76.0 Acute vaginitis; B96.89 Other specified bacterial agents as the cause of diseases classified elsewhere; Z20.2 Contact with and (suspected) exposure to infections with a predominantly sexual mode of transmission; N83.201 Unspecified ovarian cyst, right side
CPT/HCPCS: 99213

== ENCOUNTER 2023-07-16 15:53 | Outpatient (REF) | payer OTHER, SELFPAY ==
[2023-07-17 05:43] LABS: CT PCR NOT DETECTED (Not Detect.); NG PCR NOT DETECTED (Not Detect.)
[2023-07-17 13:01] LABS: BV Int Neg Control Negative (Negative); BV Int Pos Control Positive (Positive)
== END 2023-07-16 15:54 | disposition home or self-care (01) ==
LOC: HO.LNP 15:53
PROVIDERS: Visit Provider Advanced Practice Midwife
DX: N76.0 Acute vaginitis (principal); B96.89 Other specified bacterial agents as the cause of diseases classified elsewhere; Z20.2 Contact with and (suspected) exposure to infections with a predominantly sexual mode of transmission
CPT/HCPCS: 0353U; 87480; 87510; 87660

== ENCOUNTER 2023-09-02 08:50 | Outpatient (AMB) | payer OTHER, SELFPAY ==
[2023-09-02 09:11] VITALS: BP 108/80; BMI 28.5
--- NOTE | 2023-09-02 09:11 | MHC.OFFVIS ---
Intake Vital Signs 09/02/23 09:11 Height 4 ft 11 in Weight 141 lb BMI 28.5 BP 108/80 Intake Visit Reasons: bleeding with nexplanon Intake Note: Scribed for Yessenia Boss CNM by Lisandro Franklin, lpn or medical assistant, on 09/02/23 at 9:30 AM, EST Hand Umbrella Tipper: Hand Umbrella Tipper Present (Ernestine) Allergies shrimp Allergy (Intermediate, Verified 09/02/23 09:12) hive HPI HPI Comments History of Present Illness Details Patient presents with complains of VB on Nexplanon. She says this has not improved in the last few months since her last appointment. She would like to have her Nexplanon removed and transition to using Depo for her BC. She reports nausea in the past when using oral BC pills. She denies any contraindications to control such as: migraines with aura, history of DVT or pulmonary emboli, high blood pressure, liver disease, thrombolic disorders, Lupus, +JAXON, or smoking. [facility] Medical History Right ovarian cyst Breakthrough bleeding on Nexplanon GERD (gastroesophageal reflux disease) COVID-19 vaccine series completed Cholelithiasis Anxiety and depression Surgical History History of laparoscopic cholecystectomy Family History Father No problems noted. Paternal Grandmother Brain tumor Mother No problems noted. Family/Other Dementia Hypertension Cancer Brother In good health Daughter In good health Social History Household Members Other:: minor child Housing: Condominium Are you a primary care analyst to a significant other at home: Yes Do you presently have visiting nurse or other home services: No Alcohol intake: current Alcohol intake frequency: holidays/special occasions only Patient Tobacco Use Status: Never used Tobacco e-Cigarette/Vaping Use: Never Used Substance Use Type: Marijuana service: No Current occupational status: employed Gender identity: Female Cognitive needs: No Hearing needs: No Vision needs: No Female Reproductive History Menstrual Age of Menarche: 14 Review of Systems Const All systems reviewed & are unremarkable except as noted in HPI and below Physical Exam Vital Signs: Last Vital Signs BP 108/80 09/02/23 09:11 BMI result Body Mass Index 28.5 Const General: cooperative, healthy appearing and no acute distress Orientation/consciousness: patient oriented x3 GI Inspection: Yes normal to inspection Palpation (GI): Soft to palpation and Other GI palpation findings present (Nontender) Rectal Exam - Female: visual inspection normal General: Yes bladder normal to palpation External Female Exam: normal appearance of the urethra Speculum Exam - Vagina: normal appearance of the vagina, normal palpation, normal vaginal discharge and vaginal bleeding (Dark brown blood in vagina) Speculum Exam - Cervix: normal appearance of the cervix and normal palpation Bimanual exam- vagina & uterus: normal bimanual exam, normal palpation, uterine size normal, bladder normal to palpation, normal palpation, uterine shape normal and non-tender Bimanual Exam- Adnexa, other: normal adnexae OB/external & speculum: vaginal bleeding (Dark brown blood in vagina) Neuro General: patient oriented x3 Results AMB Test Urine AMB Test Urine Negative Last Edit by PRISCA Paul on 09/02/23 09:21 Results Reviewed Results Reviewed: Laboratory Last Values Tst Clinic Negative 09/02/23 09:21 Assessment & Plan Assessment & Plan (1) Breakthrough bleeding on Nexplanon: Code(s): N92.1 - Excessive and frequent menstruation with irregular cycle; Z97.5 - Presence of (intrauterine) contraceptive device Plan: VB not improved since her last appointment. test negative today. She would like to d/c Nexplanon and transition to Depo-Provera, which she has used in the past. She cannot tolerate PO BC due to GI upset. Reviewed use, side effects and warnings including weight gain, hair loss, depression, acne and decrease of bone loss which is usually reversible after stopping in a young woman. Encouraged Calcium and Vitamin D. She was instructed to go to ER if she develops loss of vision, severe headache that does not resolve, chest pain, difficulty breathing, abdominal pain, or severe pain or tenderness in extremity or new breast lumps. She will call the office with any concerns. Rx for Depo sent to pharmacy. Instructed to machine operator picker rx and bring to office with her. An appointment will be made for Nexplanon removal, this may be done after her annual on 09/24/23 due to timing restrictions. (2) BV (bacterial vaginosis): Code(s): N76.0 - Acute vaginitis; B96.89 - Other specified bacterial agents as the cause of diseases classified elsewhere Plan: No complaints today. (3) Gonorrhea contact, treated: Code(s): Z20.2 - Contact with and (suspected) exposure to infections with a predominantly sexual mode of transmission (4) Chlamydia contact, treated: Code(s): Z20.2 - Contact with and (suspected) exposure to infections with a predominantly sexual mode of transmission Orders: Orders Bacterial Vaginosis Panel Today B96.89 - Other specified bacterial agents as the cause of diseases classified elsewhere, N76.0 - Acute vaginitis, N92.1 - Excessive and frequent menstruation with irregular cycle, Z97.5 - Presence of (intrauterine) contraceptive device AMB HCG Urine Test Today N92.1 - Excessive and frequent menstruation with irregular cycle, Z32.02 - Encounter for test, result negative, Z97.5 - Presence of (intrauterine) contraceptive device CT NG by PCR Today N92.1 - Excessive and frequent menstruation with irregular cycle, Z20.2 - Contact with and (suspected) exposure to infections with a predominantly sexual mode of transmission, Z97.5 - Presence of (intrauterine) contraceptive device Medications: New medroxyprogesterone (Depo-Provera) 150 mg IM [id number] 1 mL 0RF Coding Level of Care Code Est Pt Level 3 (58783) Diagnoses Breakthrough bleeding on Nexplanon N92.1; Z97.5 BV (bacterial vaginosis) N76.0; B96.89 Gonorrhea contact, treated Z20.2 Chlamydia contact, treated Z20.2
== END 2023-09-02 09:35 | disposition home or self-care (01) ==
LOC: HO.HWS 08:50
PROVIDERS: PCP Nurse Practitioner Family; Visit Provider Advanced Practice Midwife
DX: N92.1 Excessive and frequent menstruation with irregular cycle (principal); Z97.5 Presence of (intrauterine) contraceptive device; N76.0 Acute vaginitis; B96.89 Other specified bacterial agents as the cause of diseases classified elsewhere; Z20.2 Contact with and (suspected) exposure to infections with a predominantly sexual mode of transmission; Z32.02 Encounter for pregnancy test, result negative
CPT/HCPCS: 99213

== ENCOUNTER 2023-09-02 08:50 | Outpatient (REF) | payer OTHER, SELFPAY ==
[2023-09-02 13:50] LABS: CT PCR NOT DETECTED (Not Detect.); NG PCR NOT DETECTED (Not Detect.)
[2023-09-03 12:02] LABS: BV Int Neg Control Negative (Negative); BV Int Pos Control Positive (Positive)
== END 2023-09-02 08:51 | disposition home or self-care (01) ==
LOC: HO.LAB 08:50
PROVIDERS: PCP Nurse Practitioner Family; Visit Provider Advanced Practice Midwife
DX: N92.1 Excessive and frequent menstruation with irregular cycle (principal); Z20.2 Contact with and (suspected) exposure to infections with a predominantly sexual mode of transmission; N76.0 Acute vaginitis; B96.89 Other specified bacterial agents as the cause of diseases classified elsewhere; Z97.5 Presence of (intrauterine) contraceptive device
CPT/HCPCS: 0353U; 81025; 87480; 87510; 87660; 99212

== ENCOUNTER 2023-09-02 09:36 | Outpatient (REF) | payer OTHER, SELFPAY | END 2023-09-02 09:37 | disposition home or self-care (01) | LOC: HO.LNP 09:36 | PROVIDERS: Visit Provider Advanced Practice Midwife | DX: Z13.89 Encounter for screening for other disorder (principal) ==

== ENCOUNTER 2023-09-24 11:40 | Outpatient (AMB) | payer OTHER, SELFPAY ==
--- NOTE | 2023-09-24 11:45 | A.OFFVIS_ITS ---
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 Doing well with no concerns. She tries to eat healthy and stays active with exercise. Random, persistant bleeding with the Nexplanon. The removal date scheduled and she is planning to switch to Depo-Provera. Currently not is sexually active. She denies vaginal itching and irritation, mild cramping. STI screening offered; she accepts. Denies family history of breast, ovarian or colon cancer. Last pap smear 2022, negative. [facility] Medical History Right ovarian cyst Breakthrough bleeding on Nexplanon GERD (gastroesophageal reflux disease) COVID-19 vaccine series completed Cholelithiasis Anxiety and depression Surgical History History of laparoscopic cholecystectomy Family History Father No problems noted. Paternal Grandmother Brain tumor Mother No problems noted. Family/Other Dementia Hypertension Cancer Brother In good health Daughter In good health Social History Household Members Other:: minor child Housing: Condominium Are you a primary care connector to a significant other at home: Yes Do you presently have visiting nurse or other home services: No Alcohol intake: current Alcohol intake frequency: holidays/special occasions only Patient Tobacco Use Status: Never used Tobacco e-Cigarette/Vaping Use: Never Used Substance Use Type: Marijuana service: No Current occupational status: employed Gender identity: Female Cognitive needs: No Hearing needs: No Vision needs: No Female Reproductive History Menstrual Age of Menarche: 14 control method: implanted (Nexplanon 08/2021) Total pregnancies: 1 Full term: 1 Number of Living Children: 1 Date of last pap smear: 06/12/23 (neg) History of STI: Yes (05/2023 +chl) Review of Systems Const All systems reviewed & are unremarkable except as noted in HPI and below Reports as per HPI Eyes Reports no additional complaints ENT Reports no additional complaints Card Reports no additional complaints Resp Reports no additional complaints GI Reports as per HPI and Reports no additional complaints Reports as per HPI Musc Reports no additional complaints Skin/Breast Reports as per HPI Neuro Reports no additional complaints Psych Reports no additional complaints Endo Reports no additional complaints Gamal/Lymph Reports no additional complaints Aller/Immun Reports no additional complaints Physical Exam Const General: cooperative, healthy appearing, no acute distress, well developed and alert Orientation/consciousness: patient oriented x3 HEENT Head: Yes normal to inspection Eyes General: appearance normal, both eyes and all related structures Neck Neck: Yes normal visual inspection Thyroid: Thyroid normal Chest Chest palpation & inspection: normal inspection of the chest and other (no puckering, dimpling, peau de orange, retraction, discharge, masses) Breast/axilla inspection: normal inspection of the breasts Breast/axilla palpation: normal palpation of the breasts Resp Effort & Inspection: normal respiratory effort GI Inspection: Yes normal to inspection Palpation (GI): Soft to palpation Rectal Exam - Female: deferred General: Yes bladder normal to palpation External Female Exam: normal external appearance and normal appearance of the urethra Speculum Exam - Vagina: normal appearance of the vagina, normal palpation, normal vaginal discharge and vaginal bleeding Speculum Exam - Cervix: normal appearance of the cervix and normal palpation Bimanual exam- vagina & uterus: normal bimanual exam, normal palpation, uterine size normal, bladder normal to palpation, normal palpation and non-tender Bimanual Exam- Adnexa, other: no masses OB/external & speculum: vaginal bleeding Skin General skin exam: no rashes or lesions noted Rashes: no rashes Neuro General: patient oriented x3 Cognition (Neuro): normal cognition Extrem General: Yes normal to inspection Psych Attitude: cooperative Thought process: Normal thought process present Assessment & Plan Assessment & Plan (1) Encounter for well woman exam with routine gynecological exam: Code(s): Z01.419 - Encounter for gynecological examination (general) (routine) without abnormal findings Plan Discussed: Current recommendations for pap smears per ASCCP guidelines. Breast awareness and periodic breast exams. Maintain a healthy lifestyle including a well balanced diet and routine exercise. Use condoms for STI and prevention. BV panel repeated due to the cramping although to the blood it may not be validated patient is aware. Return to the office for Nexplanon removal in Depo-Provera same-day visit. All of her questions and concerns were addressed to the best of my ability. RTO in one year for annual tapper hand examination. Coding Level of Care Code Est Pt Prev Care 18-39y(73474) Diagnoses Encounter for well woman exam with routine gynecological exam Z01.419
[2023-09-24 11:49] VITALS: BP 110/74; BMI 28.7
== END 2023-09-24 12:16 | disposition home or self-care (01) ==
LOC: HO.HWS 11:40
PROVIDERS: PCP Nurse Practitioner Family; Visit Provider Advanced Practice Midwife
DX: Z01.419 Encounter for gynecological examination (general) (routine) without abnormal findings (principal)
CPT/HCPCS: 99395

== ENCOUNTER 2023-09-24 11:40 | Outpatient (REF) | payer OTHER, SELFPAY ==
[2023-09-25 13:08] LABS: BV Int Neg Control Negative (Negative); BV Int Pos Control Positive (Positive)
== END 2023-09-24 11:41 | disposition home or self-care (01) ==
LOC: HO.LAB 11:40
PROVIDERS: PCP Nurse Practitioner Family; Visit Provider Advanced Practice Midwife
DX: Z01.419 Encounter for gynecological examination (general) (routine) without abnormal findings (principal); N76.0 Acute vaginitis; B96.89 Other specified bacterial agents as the cause of diseases classified elsewhere; R10.2 Pelvic and perineal pain; Z11.3 Encounter for screening for infections with a predominantly sexual mode of transmission
CPT/HCPCS: 87480; 87510; 87660

== ENCOUNTER 2023-09-25 08:08 | Outpatient (AMB) | payer OTHER, SELFPAY ==
[2023-09-25 08:10] VITALS: BP 114/70; BMI 28.7
--- NOTE | 2023-09-25 08:10 | MHC.OFFVIS ---
Intake Vital Signs 09/25/23 08:10 Height 4 ft 11 in Weight 142 lb BMI 28.7 BP 114/70 Intake Visit Reasons: Nexplanon Removal/Depo Oriental Medicine Practitioner: Oriental Medicine Practitioner Present (Ernestine) Allergies shrimp Allergy (Intermediate, Verified 09/25/23 08:10) hive HPI HPI Comments History of Present Illness Details Patient is here for Nexplanon removal and will be starting Depo-Provera today. She is currently not sexually active and denies any risk to . She denies any risk factors to Depo-Provera use. [facility] Medical History (Updated 09/25/23 @ 12:02 by Yessenia Boss CNM) Right ovarian cyst GERD (gastroesophageal reflux disease) COVID-19 vaccine series completed Cholelithiasis Anxiety and depression Surgical History History of laparoscopic cholecystectomy Family History Father No problems noted. Paternal Grandmother Brain tumor Mother No problems noted. Family/Other Dementia Hypertension Cancer Brother In good health Daughter In good health Social History Household Members Other:: minor child Housing: Condominium Are you a primary director long term care to a significant other at home: Yes Do you presently have visiting nurse or other home services: No Alcohol intake: current Alcohol intake frequency: holidays/special occasions only Patient Tobacco Use Status: Never used Tobacco e-Cigarette/Vaping Use: Never Used Substance Use Type: Marijuana service: No Current occupational status: employed Gender identity: Female Cognitive needs: No Hearing needs: No Vision needs: No Female Reproductive History Menstrual Age of Menarche: 14 control method: progesterone injection Physical Exam Vital Signs: Last Vital Signs BP 114/70 09/25/23 08:10 BMI result Body Mass Index 28.7 Const General: cooperative, healthy appearing and no acute distress Extrem Other: Implant intact superficial in the left upper inner humerus area Office Procedures Depo Questionnaire If YES to any of the following questions, please consult a provider. Menstrual pattern since last injection has been: Not Applicable Irregular bleeding?: Not Applicable Breast lumps or other breast changes?: Not Applicable Changes in weight or appetite?: Not Applicable Depression or changes in mood?: Not Applicable Abnormal hair growth or loss?: Not Applicable Skin problems (rash, acne, discoloration)?: Not Applicable Pain at the injection site?: Not Applicable Headaches?: Not Applicable Nervousness?: Not Applicable Abdominal pain or cramping?: Not Applicable Dizziness or nausea?: Not Applicable Fatigue or weakness?: Not Applicable Decrease in sexual drive?: Not Applicable Chest pain or shortness of breath?: Not Applicable Swelling in arms or legs?: Not Applicable Form completed by?: Kanwal Costa RN Contraception Insert/Removal Details Details: Nexplanon Removal Procedure: The patient was placed in a supine position with her non dominant left hand resting under her head. The insertion site was located: 8-10cm from the medial epicondyle notch of the humerus, posterior to the sulcus, between the triceps and biceps muscle. The area of the previous implant was identified and the distal tip located. This area was cleansed with an alcohol prep and 1 ml of 1% Lidocaine on a 25 gauge needle and syringe was utilized for adequate anesthesia to the insertion site. After ascertaining adequate anesthesia, the area was prepped with Betadine solution. The skin over the distal tip was incised with a #11 blade scalpel and the capsule was located and entered freeing the implant from the canal. The implant was removed with a gentle tug using a mosquito clamp and removed intact. Direct pressure was applied to the insertion site for hemostasis, minimal bleeding was observed. Steri strips, Tegaderm covering, gauze pads, and Valentin wrap dressing were secured with paper tape. The patient tolerated the procedure well and left the office in good condition. 63910 - Removal Office Meds Depo-Provera 150 mg/mL intramuscular syringe Performing Provider: Yessenia Boss CNM [place] [facility] [place] [facility] Administered by: Kanwal Costa on 09/25/23 09:09 Dose Route Admin Location Dispensed Lot Number Expiration Date NDC Volunteer Recruiter 150 mg IM RGM 1 mL [id number] 07/19/24 93750-150-62 [employer] Assessment & Plan Assessment & Plan (1) Nexplanon removal: Code(s): Z30.46 - Encounter for surveillance of implantable subdermal contraceptive Plan: Nexplanon Post-removal Care: You can expect mild tenderness, swelling, and bruising from the area. If no allergies, you may use a mild over the counter analgesic like Tylenol or Advil (follow the manufacturers recommendations on dosing and frequency of use). Call the office if any symptoms and including: fever (over 100.4), flu like symptoms, signs of infection-redness, pus drainage, pain (beyond usual healing). Keep the pressure dressing on and clean and dry for 24 hours, then remove it. You may take the steri strips and Tegaderm off in 5-7days, or sooner if peeling off on its own. (2) Initiation of Depo Provera: Code(s): Z30.013 - Encounter for initial prescription of injectable contraceptive Plan: Depo Provera Use: Counseled regarding: risk/benefits, alternative options. Use-frequency, side effects including weight gain, acne, hair loss, mood changes, unpredictable bleeding, or no bleeding, bone loss which is often improved when stopping Depo Provera, but not always completely reversible. Warnings: Severe headache, loss of vision, chest pain, difficulty breathing, severe stomach pain, pain or swelling in an extremity. Go to the nearest ED if experiencing any of these symptoms. If any new breast lumps or concerns notify the office. Maintain a healthy lifestyle with a well balance diet including calcium and Vit D, along with regular weight bearing exercises to support good bone health. Return to the office every 12 weeks for Depo renewal. Orders: Orders AMB Medroxyprogesterone Injection Patient Supplied Today Z30.013 - Encounter for initial prescription of injectable contraceptive Medications: Refilled medroxyprogesterone (Depo-Provera) 150 mg IM [id number] 1 mL 4RF Coding Level of Care Code Procedure Only Diagnoses Nexplanon removal Z30.46 Initiation of Depo Provera Z30.013 CPT Codes Details - Contraception: 81043 - Removal ([id number])
== END 2023-09-25 09:07 | disposition home or self-care (01) ==
LOC: HO.HWSW 08:08
PROVIDERS: PCP Nurse Practitioner Family; Visit Provider Advanced Practice Midwife
DX: Z30.46 Encounter for surveillance of implantable subdermal contraceptive (principal); Z30.013 Encounter for initial prescription of injectable contraceptive
CPT/HCPCS: 11982

== ENCOUNTER → 2023-09-25 08:08 | Outpatient (BNVA) | payer OTHER, SELFPAY | PROVIDERS: PCP Nurse Practitioner Family; Visit Provider Advanced Practice Midwife | DX: Z30.46 Encounter for surveillance of implantable subdermal contraceptive (principal); Z30.013 Encounter for initial prescription of injectable contraceptive | CPT/HCPCS: 11982; 96372; J1050 ==

== ENCOUNTER 2023-12-22 15:01 | Outpatient (AMB) | payer OTHER, SELFPAY ==
[2023-12-22 15:18] VITALS: BMI 28.5
--- NOTE | 2023-12-22 15:18 | AM.OFFVISNUR ---
Intake Vital Signs 12/22/23 15:18 Height 4 ft 11 in Weight 63.957 kg BMI 28.5 Intake Visit Reasons: Depo Allergies shrimp Allergy (Intermediate, Verified 09/25/23 08:10) hive Office Procedures Depo Questionnaire If YES to any of the following questions, please consult a provider. Date of last injection: 09/25/23 Date of last gynecology exam: 09/24/23 Menstrual pattern since last injection has been: Not Applicable Irregular bleeding?: No Breast lumps or other breast changes?: No Changes in weight or appetite?: No Depression or changes in mood?: No Abnormal hair growth or loss?: No Skin problems (rash, acne, discoloration)?: No Pain at the injection site?: No Headaches?: No Nervousness?: No Abdominal pain or cramping?: No Dizziness or nausea?: No Fatigue or weakness?: No Decrease in sexual drive?: No Chest pain or shortness of breath?: No Swelling in arms or legs?: No Form completed by?: Manuel Corey LPN Office Meds Depo-Provera 150 mg/mL intramuscular syringe Performing Provider: Yessenia Boss CNM Performing Location: [facility] [place] [facility] Administered by: Arlene Corey LPN on 12/22/23 15:18 Dose Route Admin Location Dispensed Lot Number Expiration Date [facility] Dialysis Chief Equipment Technician 150 mg IM rt. GLM 1 mL [id number] 06/19/25 02434-742-42 [employer] Coding Level of Care Code Established Pt Est Pt Level 1 (09321) Patient Type Established History Problem Focused Exam Problem Focused Medical Decision Making Straight Forward Time Spent (min) 20 Assessment & Plan Assessment & Plan Orders: Orders AMB Medroxyprogesterone Injection Patient Supplied Today N92.1 - Excessive and frequent menstruation with irregular cycle, Z97.5 - Presence of (intrauterine) contraceptive device
== END 2023-12-22 15:11 | disposition home or self-care (01) ==
LOC: HO.HWS 15:01
PROVIDERS: PCP Nurse Practitioner Family; Visit Provider Advanced Practice Midwife
DX: N92.1 Excessive and frequent menstruation with irregular cycle (principal); Z97.5 Presence of (intrauterine) contraceptive device

== ENCOUNTER → 2023-12-22 15:01 | Outpatient (BNVA) | payer OTHER, SELFPAY | PROVIDERS: PCP Nurse Practitioner Family; Visit Provider Advanced Practice Midwife | DX: N92.1 Excessive and frequent menstruation with irregular cycle (principal); Z97.5 Presence of (intrauterine) contraceptive device | CPT/HCPCS: 96372; 99211; J1050 ==

== ENCOUNTER 2024-03-17 14:26 | Outpatient (AMB) | payer OTHER, SELFPAY ==
--- NOTE | 2024-03-17 14:35 | AM.OFFVISNUR ---
Intake Intake Visit Reasons: DEPO Allergies shrimp Allergy (Intermediate, Verified 09/25/23 08:10) hive Nursing Note Clarice is here for her scheduled Depo-Provera inj. She has not had any bleeding, or any other complaints. Pt tolerated inj well. Follow up in 12 wks. Office Procedures Depo Questionnaire If YES to any of the following questions, please consult a provider. Date of last injection: 12/22/23 Date of last gynecology exam: 09/24/23 Menstrual pattern since last injection has been: Not Applicable Irregular bleeding?: No Breast lumps or other breast changes?: No Changes in weight or appetite?: No Depression or changes in mood?: No Abnormal hair growth or loss?: No Skin problems (rash, acne, discoloration)?: No Pain at the injection site?: No Headaches?: No Nervousness?: No Abdominal pain or cramping?: No Dizziness or nausea?: No Fatigue or weakness?: No Decrease in sexual drive?: No Chest pain or shortness of breath?: No Swelling in arms or legs?: No Form completed by?: Manuel helton LPN Office Meds Depo-Provera 150 mg/mL intramuscular syringe Performing Provider: Yessenia Boss CNM Performing Location: [facility] [place] [facility] Administered by: Arlene Helton LPN on 03/17/24 14:36 Dose Route Admin Location Dispensed Lot Number Expiration Date [facility] Film Reproducer 150 mg IM rt. gluteus 1 mL [id number] 06/19/25 39913-256-46 [employer] Coding Level of Care Code Established Pt Est Pt Level 1 (72868) Patient Type Established History Problem Focused Exam Problem Focused Medical Decision Making Straight Forward Time Spent (min) 20 Assessment & Plan Assessment & Plan Orders: Orders AMB Medroxyprogesterone Injection Patient Supplied Today Z30.42 - Encounter for surveillance of injectable contraceptive Medications: New Depo-Provera (medroxyprogesterone) 150 mg IM ONCE 1 mL 0RF NS Z30.42 - Encounter for surveillance of injectable contraceptive
== END 2024-03-17 14:34 | disposition home or self-care (01) ==
PROVIDERS: PCP Nurse Practitioner Family; Visit Provider Advanced Practice Midwife
DX: Z30.42 Encounter for surveillance of injectable contraceptive (principal)

== ENCOUNTER → 2024-03-17 14:26 | Outpatient (BNVA) | payer OTHER, SELFPAY | PROVIDERS: PCP Nurse Practitioner Family; Visit Provider Advanced Practice Midwife | DX: Z30.42 Encounter for surveillance of injectable contraceptive (principal) | CPT/HCPCS: 96372; 99211; J1050 ==

== ENCOUNTER 2024-04-28 10:19 | Outpatient (REF) | payer OTHER, SELFPAY ==
[2024-04-28 10:57] LABS: Alanine Aminotransferase 66 U/L (0-31); Albumin Level 4.1 g/dL (3.5-5.0); Alkaline Phosphatase 63 U/L (39-117); Anion Gap 11 (12-20); Aspartate Amino Transferase 29 U/L (5-31); Bilirubin Direct < 0.2 mg/dL (0.0-0.5); Bilirubin Total 0.2 mg/dL (0.0-1.0); Blood Urea Nitrogen 7 mg/dL (9-16); Calcium 8.9 mg/dL (8.4-10.2); Carbon Dioxide 22 mmol/L (22-29); Chloride 111 mmol/L (96-108); Cholesterol 123 mg/dL (<200); Estimated Glomerular Filt Rate > 60; Glucose Random 100 mg/dL (60-115); HDL Cholesterol 39 mg/dL (>40); LDL Cholesterol Calculated 55 mg/dL (<100); Potassium 3.4 mmol/L (3.3-5.1); Sodium 141 mmol/L (135-145); Total Protein 6.8 g/dL (6.5-8.0); Triglycerides 147 mg/dL (<150)
[2024-04-28 11:12] LABS: Thyroid Stimulating Hormone 2.73 uIU/mL (0.32-4.0)
[2024-04-28 12:07] LABS: Appearance Urine Clear; Color Urine Yellow; Glucose Urine UA Negative (Negative); Leukocyte Esterase Urine Trace (Negative); Nitrite Urine Negative (Negative); Specific Gravity - Urine 1.025 (1.005-1.025); UMIC TRIGGER UA YES; Urine Blood Trace (Negative); Urine Ketones Negative (Negative); Urine Protein Negative (Neg-Trace)
[2024-04-28 12:12] LABS: Bacteria Urine 1+ (None Seen); Hyaline Casts Urine 0-2 /LPF (0-2)
== END 2024-04-28 10:20 | disposition home or self-care (01) ==
LOC: HO.LAB 10:19
PROVIDERS: PCP Internal Medicine; Visit Provider Internal Medicine
DX: R14.0 Abdominal distension (gaseous) (principal)
CPT/HCPCS: 36415; 80048; 80061; 80076; 81001; 81003; 84443

== ENCOUNTER 2024-04-28 14:55 | Outpatient (AMB) | payer OTHER, SELFPAY ==
--- NOTE | 2024-04-28 14:59 | MHC.PC.OV ---
Vital Signs 04/28/24 15:07 Height 4 ft 11 in Weight 141 lb 6 oz BMI 28.6 BP 110/80 Blood Pressure Location Rt brachial Position Sitting Pulse 84 Pulse Source Pulse Oximeter Pulse Oximetry (%) 100 Oxygen Delivery Method Room Air Intake Visit Reasons: PE Intake Note: Patient is here today for a physical and IWONA from .[facility]. Complaint of GI issue since Gallbladder removal, Ear pain with some scraps. Complaint of nasal congestion. Turret Punch Press Operator Required: No Brand Activation Manager: Not Required per policy Accompanied by: Self / Same As Patient Allergies shrimp Allergy (Intermediate, Verified 04/28/24 15:07) hive Tobacco use date assessed: 04/28/24 Dental Screening Dental Screen Date: 04/28/24 Did you have a dental visit in the last 12 months?: Yes Did you have a dental problem in the last 6 months where you did not have access to dental care?: No Was dental information given to patient?: Patient has dentist HPI PE HPI Details 28-year-old female presents to the office requesting an annual physical. Despite taking the PPI and anti nausea medication, patient continues to have periodic bloating sensation. She feels constipated at times. Irregular bowel movements. [facility] Medical History (Updated 09/25/23 @ 12:02 by Yessenia Boss CNM) Right ovarian cyst GERD (gastroesophageal reflux disease) COVID-19 vaccine series completed Cholelithiasis Anxiety and depression Surgical History History of laparoscopic cholecystectomy Family History (Updated 04/28/24 @ 15:00 by PRISCA Lagunas) Father No problems noted. Paternal Grandmother Brain tumor Mother No problems noted. Family/Other Dementia Hypertension Cancer Brother In good health Daughter In good health Social History Household Members Other:: minor child Housing: Condominium Are you a primary customer care team coach to a significant other at home: Yes Do you presently have visiting nurse or other home services: No Alcohol intake: current Alcohol intake frequency: holidays/special occasions only Patient Tobacco Use Status: Never used Tobacco e-Cigarette/Vaping Use: Never Used Second Hand Smoke Exposure: No Substance Use Type: Marijuana service: No Current occupational status: employed Gender identity: Female Cognitive needs: No Hearing needs: No Vision needs: No Female Reproductive History Menstrual Age of Menarche: 14 Questionnaire PHQ-9 Over the last 2 weeks, how often have you been bothered by any of the following problems? 1. Little interest or pleasure in doing things: not at all 2. Feeling down, depressed, or hopeless: not at all 3. Trouble falling or staying asleep, or sleeping too much: not at all 4. Feeling tired or having little energy: not at all 5. Poor appetite or overeating: not at all 6. Feeling bad about yourself - or that you are a failure or have let yourself or your family down: not at all 7. Trouble concentrating on things, such as reading the newspaper or watching television: not at all 8. Moving or speaking so slowly that other people could have noticed. Or the opposite - being so fidgety or restless that you have been moving around a lot more than usual: not at all 9. Thoughts that you would be better off or of hurting yourself in some way: not at all Total score: 0 Depression Screening Interpretation: Negative Depression Screening Done: Yes Source: Developed by Drs. Derick Riley, Alejandra Scherer, Cory Castro and colleagues, with an educational sarah from [employer]. Thrive Questionnaire Date Thrive assessed: 04/28/24 I am a: Patient What is your living situation today?: I have a steady place to live Within the past 12 months, did the food you bought not last and you didn't have the money to get more?: Never true Within the past 12 months, did you worry whether your food would run out before you got money to buy more?: Never true Do you have trouble paying for medicines?: No Do you have trouble getting transportation to medical appointments?: No Do you have trouble paying your heating and electricity bill?: No Do you have trouble taking care of your child, family member or friend?: No Do you have trouble with day-to-day activities such as bathing, preparing meals, shopping, managing finances, etc.?: No Are you currently unemployed and looking for a job?: No Are you interested in more education?: No Currently or been in a relationship where the following occur: No concerns reported THRIVE Score: 0 AUDIT C Alcohol Use Questionnaire (AUDIT-C) 1. How often do you have a drink containing alcohol?: Never Total Score: 0 MYAH-7 AMB Questionnaire MYAH-7 Date MYAH - 7 assessed: 04/28/24 Feeling nervous, anxious, or on edge: 1 = Several days Not being able to stop or control worryin = Not at all Worrying too much about different things: 0 = Not at all Trouble relaxin = Not at all Being so restless that it is hard to sit still: 0 = Not at all Becoming easily annoyed or irritable: 1 = Several days Feeling afraid as if something awful might happen: 1 = Several days Total MYAH-7 score (0-4 normal; 5-9 mild; 10-14 moderate; 15-21 severe): 3 Source: Developed by Drs. Derick Riley, Alejandra Scherer, Cory Castro and colleagues, with an educational sarah from [employer]. Physical exam (Primary Care) Vital Signs: Last Vital Signs Pulse 84 04/28/24 15:07 BP 110/80 04/28/24 15:07 Pulse Ox 100 04/28/24 15:07 Oxygen Delivery Method Room Air 04/28/24 15:07 BMI result Body Mass Index 28.6 Tobacco/Smoking Status: Tobacco use Status Tobacco use date assessed 04/28/24 04/28/24 15:18 Patient Tobacco Use Status Never used Tobacco 04/28/24 15:00 e-Cigarette/Vaping Use Never Used 04/28/24 15:00 PHQ-9: PHQ-9 Score PHQ-9: Total score 0 04/28/24 15:29 Depression Screening Interpretation: Negative Thrive Assessment: Date of Thrive Assessment Date Thrive assessed 04/28/24 04/28/24 15:18 Currently or been in a relationship where the following occur: No concerns reported Const General: cooperative and healthy appearing Nutritional Appearance: well nourished Orientation/consciousness: patient oriented x3 Limitations: no limitations HENMT Head: Yes normal to inspection Eyes General: appearance normal, both eyes and all related structures Neck Neck: Yes normal visual inspection Chest Chest palpation & inspection: normal palpation of entire chest wall Resp Effort & Inspection: normal respiratory effort Neuro General: patient oriented x3 Assessment and Plan Assessment & Plan (1) Abdominal bloating: Comment: Continue simethicone as been helpful Code(s): R14.0 - Abdominal distension (gaseous) Plan: GI consult has been requested to consider IBS. (2) Annual physical exam: Code(s): Z00.00 - Encounter for general adult medical examination without abnormal findings Plan: Blood work reviewed. Liver function test is improving. Orders: Referrals Gastroenterology Referral R14.0 - Abdominal distension (gaseous) Medications: Refilled hydrocortisone 2.5% 1 appl topical BID PRN 20 grams 0RF itching ondansetron HCl 4 mg PO Q12H PRN 10 tabs 0RF nausea and vomiting R11.0 - Nausea epinephrine (EpiPen) for 2 doses 0.3 mg (0.3 mL) IM Q10M PRN 1 ea 1RF anaphylaxis fluticasone propionate 50 mcg/actuation 1 spray intranasal DAILY 16 mL 0RF loratadine 10 mg PO DAILY 30 tabs 2RF omeprazole 20 mg PO DAILY 30 caps 1RF K21.9 - Gastro-esophageal reflux disease without esophagitis simethicone (Gas Relief (simethicone)) 125 mg PO TID-QID PRN 90 tabs 2RF abdominal distention Coding Level of Care Code Est Pt Prev Care 18-39y(18906) Diagnoses Abdominal bloating R14.0 Annual physical exam Z00.00
[2024-04-28 15:07] VITALS: BP 110/80; PULSE 84; O2SAT 100; BMI 28.6
== END 2024-04-28 15:44 | disposition home or self-care (01) ==
PROVIDERS: PCP Internal Medicine; Visit Provider Internal Medicine
DX: Z00.00 Encounter for general adult medical examination without abnormal findings (principal); R14.0 Abdominal distension (gaseous)
CPT/HCPCS: 99395

== ENCOUNTER 2024-06-02 14:54 | Outpatient (AMB) | payer OTHER, SELFPAY ==
[2024-06-02 15:14] VITALS: BMI 28.5
--- NOTE | 2024-06-02 15:14 | AM.OFFVISNUR ---
Vital Signs 06/02/24 15:14 Height 4 ft 11 in Weight 141 lb 2 oz BMI 28.5 Intake Visit Reasons: depo Life Enrichment Manager Required: No Allergies shrimp Allergy (Intermediate, Verified 04/28/24 15:07) hive Is last menstrual period known: No Post menopausal: No Patient : No Nursing Note Clarice is here for scheduled Depo provera injection. No c/o. Pt tolerated injection well. She will schedule her next injection in 12 weeks. Pt verbalizes understanding and agrees with plan. No further questions. Office Procedures Depo Questionnaire If YES to any of the following questions, please consult a provider. Date of last injection: 03/17/24 Date of last gynecology exam: 09/24/23 Menstrual pattern since last injection has been: Not Applicable Irregular bleeding?: No Breast lumps or other breast changes?: No Changes in weight or appetite?: No Depression or changes in mood?: No Abnormal hair growth or loss?: No Skin problems (rash, acne, discoloration)?: No Pain at the injection site?: No Headaches?: No Nervousness?: No Abdominal pain or cramping?: No Dizziness or nausea?: No Fatigue or weakness?: No Decrease in sexual drive?: No Chest pain or shortness of breath?: No Swelling in arms or legs?: No Form completed by?: Kanwal Costa RN Office Meds Depo-Provera 150 mg/mL intramuscular syringe Performing Provider: Yessenia Boss CNM Performing Location: [facility] [place] [facility] Administered by: Kanwal Costa on 06/02/24 15:16 Dose Route Admin Location Dispensed Lot Number Expiration Date [facility] Sde 150 mg IM RGM 1 mL [id number] 08/19/25 44277-479-29 [employer] Assessment & Plan Assessment & Plan Orders: Orders AMB Medroxyprogesterone Injection Patient Supplied Today Z30.42 - Encounter for surveillance of injectable contraceptive Medications: New Depo-Provera (medroxyprogesterone) 150 mg IM ONCE 1 mL 0RF NS Z30.42 - Encounter for surveillance of injectable contraceptive
== END 2024-06-02 15:26 | disposition home or self-care (01) ==
LOC: HO.HWS 14:54
PROVIDERS: PCP Internal Medicine; Visit Provider Advanced Practice Midwife
DX: Z30.42 Encounter for surveillance of injectable contraceptive (principal)

== ENCOUNTER → 2024-06-02 14:54 | Outpatient (BNVA) | payer OTHER, SELFPAY | PROVIDERS: PCP Internal Medicine; Visit Provider Advanced Practice Midwife | DX: Z30.42 Encounter for surveillance of injectable contraceptive (principal) | CPT/HCPCS: 96372; 99211; J1050 ==

== ENCOUNTER 2024-06-04 09:05 | Outpatient (AMB) | payer OTHER, SELFPAY ==
--- NOTE | 2024-06-04 09:06 | MHC.OFFVIS ---
Vital Signs 06/04/24 09:07 Height 4 ft 11 in Weight 141 lb BMI 28.5 BP 108/78 Intake Visit Reasons: ? infection Intake Note: pt c/o white discharge Director Digital Strategy: Director Digital Strategy Present (Ernestine) Allergies shrimp Allergy (Intermediate, Verified 06/04/24 09:07) hive HPI Comments Details: Patient is here today with concerns that she has increased vaginal discharge, she admits to she has had a history yeast and bacterial vaginosis in the past. She denies any other symptoms. She is currently not sexually active. Declines need to have blood work done today. [facility] Medical History (Updated 06/04/24 @ 09:35 by Yessenia Boss CNM) GERD (gastroesophageal reflux disease) COVID-19 vaccine series completed Cholelithiasis Anxiety and depression Surgical History History of laparoscopic cholecystectomy Family History (Updated 04/28/24 @ 15:00 by PRISCA Lagunas) Father No problems noted. Paternal Grandmother Brain tumor Mother No problems noted. Family/Other Dementia Hypertension Cancer Brother In good health Daughter In good health Social History Household Members Other:: minor child Housing: Condominium Are you a primary workforce investment act career manager to a significant other at home: Yes Do you presently have visiting nurse or other home services: No Alcohol intake: current Alcohol intake frequency: holidays/special occasions only Patient Tobacco Use Status: Never used Tobacco e-Cigarette/Vaping Use: Never Used Second Hand Smoke Exposure: No Substance Use Type: Marijuana service: No Current occupational status: employed Gender identity: Female Cognitive needs: No Hearing needs: No Vision needs: No Female Reproductive History Menstrual Age of Menarche: 14 control method: progesterone injection Review of Systems Const All systems reviewed & are unremarkable except as noted in HPI and below Physical Exam Vital Signs: Last Vital Signs BP 108/78 06/04/24 09:07 BMI result Body Mass Index 28.5 Const General: cooperative, healthy appearing and no acute distress Orientation/consciousness: patient oriented x3 GI Inspection: Yes normal to inspection Palpation (GI): Soft to palpation and Other GI palpation findings present (Nontender) Rectal Exam - Female: visual inspection normal General: Yes bladder normal to palpation External Female Exam: normal appearance of the urethra Speculum Exam - Vagina: normal appearance of the vagina, normal palpation and normal vaginal discharge (Moderate amount of white discharge) Speculum Exam - Cervix: normal appearance of the cervix and normal palpation Bimanual exam- vagina & uterus: normal bimanual exam, normal palpation, uterine size normal, bladder normal to palpation, normal palpation, uterine shape normal and non-tender Bimanual Exam- Adnexa, other: normal adnexae Neuro General: patient oriented x3 Assessment & Plan Assessment & Plan (1) Vaginal discharge: Code(s): N89.8 - Other specified noninflammatory disorders of vagina Plan Discussed: Plan cultures GC chlamydia, and bacterial vaginosis panel. Advised use of condoms if becomes sexually active. Depo follow up July, in annual exam in September. All of her questions and concerns were addressed to the best of my ability and shared decision making. She is agreeable to the plan of care. This note is constructed using voice recognition software. While every effort has been made to ensure accuracy, radiology transcriptionist errors may have been included. Orders: Orders Bacterial Vaginosis Panel Today N89.8 - Other specified noninflammatory disorders of vagina CT NG by PCR Today N89.8 - Other specified noninflammatory disorders of vagina Coding Level of Care Code Est Pt Level 3 (08960) Diagnoses Vaginal discharge N89.8
[2024-06-04 09:07] VITALS: BP 108/78; BMI 28.5
== END 2024-06-04 11:11 | disposition home or self-care (01) ==
LOC: HO.HWS 09:05
PROVIDERS: PCP Internal Medicine; Visit Provider Advanced Practice Midwife
DX: N89.8 Other specified noninflammatory disorders of vagina (principal)
CPT/HCPCS: 99213

== ENCOUNTER 2024-06-04 09:05 | Outpatient (REF) | payer OTHER, SELFPAY | END 2024-06-04 09:06 | disposition home or self-care (01) | LOC: HO.LAB 09:05 | PROVIDERS: PCP Internal Medicine; Visit Provider Advanced Practice Midwife | DX: N89.8 Other specified noninflammatory disorders of vagina (principal) | CPT/HCPCS: 99212 ==

== ENCOUNTER 2024-06-04 09:30 | Outpatient (REF) | payer OTHER, SELFPAY ==
[2024-06-04 17:27] LABS: Bacterial Vaginosis PCR NEGATIVE (Negative); Candida Group PCR DETECTED (Not Detect); Candida glab krusei PCR NOT DETECTED (Not Detect); Trichomonas vaginalis PCR NOT DETECTED (Not Detect)
[2024-06-04 18:03] LABS: CT PCR NOT DETECTED (Not Detect.); NG PCR NOT DETECTED (Not Detect.)
== END 2024-06-04 09:31 | disposition home or self-care (01) ==
LOC: HO.LNP 09:30
PROVIDERS: Visit Provider Advanced Practice Midwife
DX: N89.8 Other specified noninflammatory disorders of vagina (principal)
CPT/HCPCS: 0352U; 87491; 87591

== ENCOUNTER 2024-08-23 12:53 | Outpatient (AMB) | payer OTHER, SELFPAY ==
[2024-08-23 13:14] VITALS: BMI 29.1
--- NOTE | 2024-08-23 13:14 | AM.OFFVISNUR ---
Vital Signs 08/23/24 13:14 Height 4 ft 11 in Weight 144 lb BMI 29.1 Intake Visit Reasons: depo Snout Puller Required: No Allergies shrimp Allergy (Intermediate, Verified 06/04/24 09:07) hive Medication List - Last Reconciled 08/23/24 by Kanwal Costa epinephrine (EpiPen) 0.3 mg (0.3 mL) IM Q10M PRN fluticasone propionate 50 mcg/actuation 1 spray intranasal DAILY hydrocortisone 2.5% 1 appl topical BID PRN loratadine 10 mg PO DAILY medroxyprogesterone (Depo-Provera) 150 mg IM [id number] multivitamin 1 tab PO DAILY omeprazole 20 mg PO DAILY ondansetron HCl 4 mg PO Q12H PRN simethicone (Gas Relief (simethicone)) 125 mg PO TID-QID PRN Is last menstrual period known: No Post menopausal: No Patient : No Nursing Note Clarice is here for scheduled Depo provera injection. No c/o. Pt tolerated injection well. She will schedule her next injection in 12 weeks. Pt verbalizes understanding and agrees with plan. No further questions. Office Procedures Depo Questionnaire If YES to any of the following questions, please consult a provider. Date of last injection: 06/02/24 Date of last gynecology exam: 09/24/23 Menstrual pattern since last injection has been: Not Applicable Irregular bleeding?: No Breast lumps or other breast changes?: No Changes in weight or appetite?: No Depression or changes in mood?: No Abnormal hair growth or loss?: No Skin problems (rash, acne, discoloration)?: No Pain at the injection site?: No Headaches?: No Nervousness?: No Abdominal pain or cramping?: No Dizziness or nausea?: No Fatigue or weakness?: No Decrease in sexual drive?: No Chest pain or shortness of breath?: No Swelling in arms or legs?: No Form completed by?: Kanwal Costa RN Office Meds Depo-Provera 150 mg/mL intramuscular syringe Performing Provider: Yessenia Boss CNM Performing Location: [facility] [place] [facility] Administered by: Kanwal Costa on 08/23/24 13:18 Dose Route Admin Location Dispensed Lot Number Expiration Date [facility] Bar[employer] 150 mg IM RGM 1 mL [id number] 03/19/26 92137-602-49 [facility]mut[facility] Assessment & Plan Assessment & Plan (1) Depo-Provera contraceptive status: Code(s): Z30.42 - Encounter for surveillance of injectable contraceptive Category: Medical Orders: Orders AMB Medroxyprogesterone Injection Patient Supplied Today Z30.42 - Encounter for surveillance of injectable contraceptive Medications: New Depo-Provera (medroxyprogesterone) 150 mg IM ONCE 1 mL 0RF NS Z30.42 - Encounter for surveillance of injectable contraceptive Patient Instructions: Schedule next injection in 12 weeks.
== END 2024-08-23 13:13 | disposition home or self-care (01) ==
LOC: HO.HWS 12:53
PROVIDERS: PCP Internal Medicine; Visit Provider Advanced Practice Midwife
DX: Z30.42 Encounter for surveillance of injectable contraceptive (principal)

== ENCOUNTER → 2024-08-23 12:53 | Outpatient (BNVA) | payer OTHER, SELFPAY | PROVIDERS: PCP Internal Medicine; Visit Provider Advanced Practice Midwife | DX: Z30.42 Encounter for surveillance of injectable contraceptive (principal) | CPT/HCPCS: 96372; 99211; J1050 ==

== ENCOUNTER 2024-09-29 14:48 | Outpatient (AMB) | payer OTHER, SELFPAY ==
--- NOTE | 2024-09-29 14:58 | MHC.OFFVIS ---
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 Doing well with no concerns. Doing well on Depo-Provera with no concerns wants to continue, denies any risk factors including deep vein thrombosis and pulmonary embolus history. Historically use Nexplanon and had prolonged episodes of bleeding. Currently not is sexually active. She denies vaginal itching and irritation. STI screening offered; she accepts. She tries to eat healthy and stays active with exercise. Denies family history of breast, ovarian or colon cancer. Last pap smear 2022, negative. [facility] Medical History GERD (gastroesophageal reflux disease) COVID-19 vaccine series completed Cholelithiasis Anxiety and depression Surgical History History of laparoscopic cholecystectomy Family History Father No problems noted. Paternal Grandmother Brain tumor Mother No problems noted. Family/Other Dementia Hypertension Cancer Brother In good health Daughter In good health Social History Household Members Other:: minor child Housing: Condominium Are you a primary animal care attendant to a significant other at home: Yes Do you presently have visiting nurse or other home services: No Alcohol intake: current Alcohol intake frequency: holidays/special occasions only Patient Tobacco Use Status: Never used Tobacco e-Cigarette/Vaping Use: Never Used Second Hand Smoke Exposure: No Substance Use Type: Marijuana service: No Current occupational status: employed Gender identity: Female Cognitive needs: No Hearing needs: No Vision needs: No Female Reproductive History Menstrual Age of Menarche: 14 control method: progesterone injection (Depo 08/23/24) Total pregnancies: 1 Full term: 1 Number of Living Children: 1 Date of last pap smear: 06/12/23 (neg) History of STI: Yes (06/11 +chl) Review of Systems Const All systems reviewed & are unremarkable except as noted in HPI and below Reports as per HPI Eyes Reports no additional complaints ENT Reports no additional complaints Card Reports no additional complaints Resp Reports no additional complaints GI Reports as per HPI and Reports no additional complaints Reports as per HPI Musc Reports no additional complaints Skin/Breast Reports as per HPI Neuro Reports no additional complaints Psych Reports no additional complaints Endo Reports no additional complaints Gamal/Lymph Reports no additional complaints Aller/Immun Reports no additional complaints Physical Exam Vital Signs: Last Vital Signs BP 100/60 09/29/24 14:59 BMI result Body Mass Index 29.3 Const General: cooperative, healthy appearing, no acute distress, well developed and alert Orientation/consciousness: patient oriented x3 HEENT Head: Yes normal to inspection Eyes General: appearance normal, both eyes and all related structures Neck Neck: Yes normal visual inspection Thyroid: Thyroid normal Chest Chest palpation & inspection: normal inspection of the chest and other (no puckering, dimpling, peau de orange, retraction, discharge, masses) Breast/axilla inspection: normal inspection of the breasts Breast/axilla palpation: normal palpation of the breasts Resp Effort & Inspection: normal respiratory effort GI Inspection: Yes normal to inspection Palpation (GI): Soft to palpation Rectal Exam - Female: deferred General: Yes bladder normal to palpation External Female Exam: normal external appearance and normal appearance of the urethra Speculum Exam - Vagina: normal appearance of the vagina, normal palpation and normal vaginal discharge Speculum Exam - Cervix: normal appearance of the cervix and normal palpation Bimanual exam- vagina & uterus: normal bimanual exam, normal palpation, uterine size normal, bladder normal to palpation, normal palpation and non-tender Bimanual Exam- Adnexa, other: no masses Skin General skin exam: no rashes or lesions noted Rashes: no rashes Neuro General: patient oriented x3 Cognition (Neuro): normal cognition Extrem General: Yes normal to inspection Psych Attitude: cooperative Thought process: Normal thought process present Assessment & Plan Assessment & Plan (1) Well woman exam with routine gynecological exam: Onset Date: Unknown Code(s): Z01.419 - Encounter for gynecological examination (general) (routine) without abnormal findings Category: Medical (2) Surveillance for Depo-Provera contraception: Code(s): Z30.42 - Encounter for surveillance of injectable contraceptive Plan Discussed: Current recommendations for pap smears per ASCCP guidelines. Breast awareness and periodic breast exams. Maintain a healthy lifestyle including a well balanced diet and routine exercise. Use condoms for STI and prevention. Informed on long-term use of Depo-Provera and effects on bone density, handout on osteopenia and bone loss prevention given along with guidelines for calcium and exercise. Patient verbalizes understanding and agrees to the plan of care. She was given opportunity to ask questions and all questions were answered to the best of my ability. RTO in one year for annual rejected items clerk examination. This note is constructed using voice recognition software. While every effort has been made to ensure accuracy, life claims examiner errors may have been included. Orders: Orders HIV Ab/Ag Today Z20.2 - Contact with and (suspected) exposure to infections with a predominantly sexual mode of transmission Hepatitis B Core Antibody Today Z20.2 - Contact with and (suspected) exposure to infections with a predominantly sexual mode of transmission Hepatitis C Antibody Reflex Today Z20.2 - Contact with and (suspected) exposure to infections with a predominantly sexual mode of transmission Syphilis Screen Today Z20.2 - Contact with and (suspected) exposure to infections with a predominantly sexual mode of transmission Medications: Refilled medroxyprogesterone (Depo-Provera) 150 mg IM [id number] 1 mL 4RF Coding Level of Care Code Est Pt Prev Care 18-39y(22022) Diagnoses Well woman exam with routine gynecological exam Z01.419 Surveillance for Depo-Provera contraception Z30.42
[2024-09-29 14:59] VITALS: BP 100/60; BMI 29.3
== END 2024-09-29 15:30 | disposition home or self-care (01) ==
PROVIDERS: PCP Internal Medicine; Visit Provider Advanced Practice Midwife
DX: Z01.419 Encounter for gynecological examination (general) (routine) without abnormal findings (principal); Z30.42 Encounter for surveillance of injectable contraceptive
CPT/HCPCS: 99395

== ENCOUNTER 2024-09-29 14:49 | Outpatient (REF) | payer OTHER, SELFPAY ==
[2024-09-30 07:57] LABS: Syphilis Screen Nonreactive (Nonreactive)
[2024-09-30 08:01] LABS: HBc Num1 0.12 S/CO (0.00-0.79); HIV AB/AG Nonreactive (Nonreactive); HIV Num 1 0.05 S/CO (0.00-0.99); Hepatitis B Core Antibody Nonreactive (Nonreactive); ~HepC Num1 0.57 S/CO (0.00-0.79); ~Hepatitis C Antibody Nonreactive (Nonreactive)
== END 2024-09-29 14:50 | disposition home or self-care (01) ==
LOC: HO.LAB 14:49
PROVIDERS: PCP Internal Medicine; Visit Provider Advanced Practice Midwife
DX: Z01.419 Encounter for gynecological examination (general) (routine) without abnormal findings (principal); Z20.2 Contact with and (suspected) exposure to infections with a predominantly sexual mode of transmission
CPT/HCPCS: 36415; 86704; 86780; 86803; 87389; 99395; 99459

== ENCOUNTER 2024-09-29 15:56 | Outpatient (REF) | payer OTHER, SELFPAY ==
[2024-09-30 02:55] LABS: CT PCR NOT DETECTED (Not Detect.); NG PCR NOT DETECTED (Not Detect.)
[2024-09-30 09:03] LABS: Bacterial Vaginosis PCR NEGATIVE (Negative); Candida Group PCR NOT DETECTED (Not Detect); Candida glab krusei PCR NOT DETECTED (Not Detect); Trichomonas vaginalis PCR NOT DETECTED (Not Detect)
== END 2024-09-29 15:57 | disposition home or self-care (01) ==
LOC: HO.LNP 15:56
PROVIDERS: Visit Provider Advanced Practice Midwife
DX: Z20.2 Contact with and (suspected) exposure to infections with a predominantly sexual mode of transmission (principal); Z11.3 Encounter for screening for infections with a predominantly sexual mode of transmission
CPT/HCPCS: 0352U; 87491; 87591

== ENCOUNTER 2024-10-08 14:27 | Outpatient (AMB) | payer OTHER, SELFPAY ==
--- NOTE | 2024-10-08 14:36 | A.OFFVIS_ITS ---
Vital Signs 10/08/24 14:42 Height 4 ft 11 in Weight 145 lb BMI 29.3 BP 121/82 Blood Pressure Location Lt brachial Position Sitting Pulse 104 H Intake Visit Reasons: abdominal bloating/Chely pt Intake Note: Patient follow up for abdominal bloating/Chely former pt. Patient cc: abdominal pain/bloating, acid reflex on and off, loose stool after eating with poor appetite. Rn Nicu Required: No Accompanied by: Self / Same As Patient Allergies shrimp Allergy (Intermediate, Verified 10/08/24 14:35) hive HPI Comments Details: 28 y.o F with H GERD, s/p CCY, who is here for follow up. Prev [facility] [place] pt. Reports abd pain and diarrhea which she describes as urgency soon after eating. The stool itself is mushy but formed. No blood in stool. No unitentional weight loss. Avoids red meat because sx are worse on those. Abd pain is stacey-umbilical and gets better with defecation. Occurs daily lasts for almost 30 mins. No fam hx of CRC or IBD in first degree relatives. [facility] Medical History GERD (gastroesophageal reflux disease) COVID-19 vaccine series completed Cholelithiasis Anxiety and depression Surgical History History of laparoscopic cholecystectomy Family History Father No problems noted. Paternal Grandmother Brain tumor Mother No problems noted. 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 Do you presently have visiting nurse or other home services: No Alcohol intake: current Alcohol intake frequency: holidays/special occasions only Patient Tobacco Use Status: Never used Tobacco e-Cigarette/Vaping Use: Never Used Second Hand Smoke Exposure: No Substance Use Type: Marijuana service: No Current occupational status: employed Gender identity: Female Cognitive needs: No Hearing needs: No Vision needs: No Female Reproductive History Menstrual Age of Menarche: 14 Review of Systems Const All systems reviewed & are unremarkable except as noted in HPI and below Physical Exam Vital Signs: Last Vital Signs Pulse 104 H 10/08/24 14:42 BP 121/82 10/08/24 14:42 BMI result Body Mass Index 29.3 Gen appear: NAD, well nourished HEENT: no icterus, no cervical lymphadenopathy Chest: clear to auscultation CVS: Regular S1/S2 Abd: soft, nontender, nondistended Ext: no peripheral edema Neuro: A/Ox3, noted to move all extremities spontaneously Assessment & Plan Assessment & Plan (1) Diarrhea: Code(s): R19.7 - Diarrhea, unspecified Category: Medical (2) Abdominal bloating: Code(s): R14.0 - Abdominal distension (gaseous) Category: Medical (3) Abdominal pain: Code(s): R10.9 - Unspecified abdominal pain Category: Medical Plan Reviewed with the pt s/sx consistent with IBS-D but will get labs to r/o celiac, IBD, hyperthyroid, alpha gal frank pt reports worse sx with red meat. Plan: - Labs as below - Add fiber supplementation - Start bentyl for symptomatic management Follow up in 2 months Orders: Orders Other Ref Test - Misc 10/08/24 R19.7 - Diarrhea, unspecified C Reactive Protein 10/08/24 R19.7 - Diarrhea, unspecified Calprotectin, Fecal 10/08/24 R19.7 - Diarrhea, unspecified Complete Blood Count no Diff 10/08/24 R19.7 - Diarrhea, unspecified Immunoglobulin A 10/08/24 R19.7 - Diarrhea, unspecified TSH reflex Free T4 10/08/24 R19.7 - Diarrhea, unspecified Transglutaminase IgA 10/08/24 R19.7 - Diarrhea, unspecified Medications: New dicyclomine 10 mg PO TID PRN 270 caps 0RF abdominal pain 90 days wheat dextrin (Benefiber Healthy Shape) 5 grams PO DAILY 450 grams 0RF 90 days Coding Level of Care Code Est Pt Level 4 (96403) Diagnoses Diarrhea R19.7 Abdominal bloating R14.0 Abdominal pain R10.9
[2024-10-08 14:42] VITALS: BP 121/82; PULSE 104; BMI 29.3
== END 2024-10-08 15:11 | disposition home or self-care (01) ==
PROVIDERS: PCP Internal Medicine; Visit Provider Internal Medicine
DX: R19.7 Diarrhea, unspecified (principal); R14.0 Abdominal distension (gaseous); R10.9 Unspecified abdominal pain
CPT/HCPCS: 99214

== ENCOUNTER → 2024-10-08 14:27 | Outpatient (BNVA) | payer OTHER, SELFPAY | PROVIDERS: PCP Internal Medicine; Visit Provider Internal Medicine | DX: R19.7 Diarrhea, unspecified (principal); R14.0 Abdominal distension (gaseous); R10.9 Unspecified abdominal pain | CPT/HCPCS: 99212 ==

== ENCOUNTER 2024-11-04 09:00 | Outpatient (AMB) | payer OTHER, SELFPAY ==
--- NOTE | 2024-11-04 09:17 | A.OFFPC_ITS ---
Vital Signs 11/04/24 09:19 Height 4 ft 11 in Weight 142 lb 8 oz BMI 28.8 BP 100/76 Blood Pressure Location Lt brachial Position Sitting Pulse 64 Pulse Source Pulse Oximeter Temp 97.1 F Temp Source Skin Pulse Oximetry (%) 95 Oxygen Delivery Method Room Air Intake Visit Reasons: 6 Month F/U Intake Note: Patient is here to follow up on GERD, Anxiety, depression. Complaint of acne on nose aarea Medical Education Specialist Required: No Legal File Clerk: Not Required per policy Accompanied by: Self / Same As Patient Allergies shrimp Allergy (Intermediate, Verified 11/04/24 10:02) hive Medication List - Last Reconciled 11/04/24 by Lianna Matt PA-C dicyclomine 10 mg PO TID PRN 90 days epinephrine (EpiPen) 0.3 mg (0.3 mL) IM Q10M PRN fluticasone propionate 50 mcg/actuation 1 spray intranasal DAILY 90 days hydrocortisone 2.5% 1 appl topical BID PRN medroxyprogesterone (Depo-Provera) 150 mg IM [id number] multivitamin 1 tab PO DAILY ondansetron HCl 4 mg PO Q12H PRN simethicone (Gas Relief (simethicone)) 125 mg PO TID-QID PRN wheat dextrin (Benefiber Healthy Shape) 5 grams PO DAILY 90 days Tobacco use date assessed: 11/04/24 Dental Screening Dental Screen Date: 11/04/24 Did you have a dental visit in the last 12 months?: Yes Did you have a dental problem in the last 6 months where you did not have access to dental care?: No Was dental information given to patient?: Patient has dentist [facility] Medical History Screening for HPV (human papillomavirus) (~06/12/23) GERD (gastroesophageal reflux disease) COVID-19 vaccine series completed Cholelithiasis Anxiety and depression Surgical History History of laparoscopic cholecystectomy Family History Father No problems noted. Paternal Grandmother Brain tumor Mother No problems noted. Family/Other Dementia Hypertension Cancer Brother In good health Daughter In good health Social History Household Members Other:: minor child Housing: Condominium Are you a primary inspector health care facilities to a significant other at home: Yes Do you presently have visiting nurse or other home services: No Alcohol intake: current Alcohol intake frequency: holidays/special occasions only Patient Tobacco Use Status: Never used Tobacco e-Cigarette/Vaping Use: Never Used Second Hand Smoke Exposure: No Substance Use Type: Marijuana service: No Current occupational status: employed Gender identity: Female Cognitive needs: No Hearing needs: No Vision needs: No Female Reproductive History Menstrual Age of Menarche: 14 Questionnaire PHQ-9 Over the last 2 weeks, how often have you been bothered by any of the following problems? 1. Little interest or pleasure in doing things: several days 2. Feeling down, depressed, or hopeless: several days 3. Trouble falling or staying asleep, or sleeping too much: more than half the days 4. Feeling tired or having little energy: nearly every day 5. Poor appetite or overeating: more than half the days 6. Feeling bad about yourself - or that you are a failure or have let yourself or your family down: not at all 7. Trouble concentrating on things, such as reading the newspaper or watching television: not at all 8. Moving or speaking so slowly that other people could have noticed. Or the opposite - being so fidgety or restless that you have been moving around a lot more than usual: several days 9. Thoughts that you would be better off or of hurting yourself in some way: not at all Total score: 10 Depression Screening Interpretation: Positive Depression Screening Follow-up: Existing condition, Community Mental Health Worker F/U and Other (Will refer to therapist ) Depression Screening Done: Yes 57145 - PHQ-9 Billing: Yes Source: Developed by Drs. Derick Riley, Alejandra Scherer, Cory Castro and colleagues, with an educational sarah from [employer]. Thrive Questionnaire Date Thrive assessed: 11/04/24 I am a: Patient What is your living situation today?: I have a steady place to live Within the past 12 months, did the food you bought not last and you didn't have the money to get more?: Never true Within the past 12 months, did you worry whether your food would run out before you got money to buy more?: Never true Do you have trouble paying for medicines?: No Do you have trouble getting transportation to medical appointments?: No Do you have trouble paying your heating and electricity bill?: No Do you have trouble taking care of your child, family member or friend?: No Do you have trouble with day-to-day activities such as bathing, preparing meals, shopping, managing finances, etc.?: No Are you currently unemployed and looking for a job?: No Are you interested in more education?: No Please select the resources that you would like help with: None Currently or been in a relationship where the following occur: No concerns reported THRIVE Score: 0 AUDIT C Alcohol Use Questionnaire (AUDIT-C) 1. How often do you have a drink containing alcohol?: Never Total Score: 0 Score Reviewed/Action Taken: Yes (No action taken not indicated) MYAH-7 AMB Questionnaire MYAH-7 Date MYAH - 7 assessed: 11/04/24 Feeling nervous, anxious, or on edge: 1 = Several days Not being able to stop or control worryin = Nearly every day Worrying too much about different things: 3 = Nearly every day Trouble relaxin = Several days Being so restless that it is hard to sit still: 0 = Not at all Becoming easily annoyed or irritable: 2 = More than half the days Feeling afraid as if something awful might happen: 1 = Several days Total MYAH-7 score (0-4 normal; 5-9 mild; 10-14 moderate; 15-21 severe): 11 Source: Developed by Drs. Derick Riley, Alejandra Scherer, Cory Castro and colleagues, with an educational sarah from [employer]. MYAH-7 Assessment Billing MYAH-7 Assessment Tool: MYAH-7 Assessment 89229 (Patient will be referred to a therapist.) Physical exam (Primary Care) Vital Signs: Last Vital Signs Temp 97.1 F 11/04/24 09:19 Pulse 64 11/04/24 09:19 BP 100/76 11/04/24 09:19 Pulse Ox 95 11/04/24 09:19 Oxygen Delivery Method Room Air 11/04/24 09:19 Care Plan Goal for BP management: Blood pressure at goal at 100/76. No signs of hypertension at this time. BMI result Body Mass Index 28.8 BMI Assessment/Plan discussion: High BMI High, discussed plan: lifestyle, weight reduction, dietary, physical activity and alcohol moderation Tobacco/Smoking Status: Tobacco use Status Tobacco use date assessed 11/04/24 11/04/24 09:26 Patient Tobacco Use Status Never used Tobacco 11/04/24 09:26 e-Cigarette/Vaping Use Never Used 11/04/24 09:26 PHQ-9: PHQ-9 Score PHQ-9: Total score 10 11/04/24 09:36 Depression Screening Interpretation: Positive Depression Screening Follow-up: Existing condition, Community Mental Health Worker F/U and Other (Will refer to therapist ) Thrive Assessment: Date of Thrive Assessment Date Thrive assessed 11/04/24 11/04/24 09:26 Currently or been in a relationship where the following occur: No concerns reported Office Procedures Flu Questionnaire Does the patient have a severe egg allergy?: No Does the patient have severe life threatening allergies?: No Does the patient have a fever or illness today?: No Has the patient ever had Guillain-Kellyton Syndrome?: No Has the patient ever had any past reaction to a flu shot?: No Immunizations Fluarix Triv 6422-7722 (PF) 45 mcg (15 mcg x 3)/0.5 mL IM syringe Performing Provider: Lianna Matt PA-C [facility] Administered by: Reyna Singletary LPN on 11/04/24 09:35 Dose Route Admin Location Dispensed Lot Number Expiration Date [facility] Biology Tutor 0.5 mL IM Left Deltoid 0.5 mL [id number] 04/18/25 81520-058-58 [email or web address] VIS Given Date VIS Provided VIS Publication Date 11/04/24 Single Vaccine 21 Eligibility Eligibility Date Funding Source Not [facility] Eligible 11/04/24 Private Coding Level of Care Code Est Pt Level 4 (44315) Complex EM visit Add On G2211 Diagnoses Abdominal bloating R14.0 GERD (gastroesophageal reflux disease) K21.9 Abdominal pain R10.9 Elevated LFTs R79.89 Diarrhea R19.7 Anxiety and depression F41.9; F32.9 Rash of face R21 Overweight (BMI 25.0-29.9) E66.3 Additional Codes PHQ-9 - 50730 - PHQ-9 Billing: Yes ([id number]) MYAH-7 Assessment Billing - MYAH-7 Assessment Tool: MYAH-7 Assessment 83020 ([id number]) Assessment & Plan Assessment & Plan (1) Abdominal bloating: Code(s): R14.0 - Abdominal distension (gaseous) Category: Medical Plan: Patient with abdominal bloating. Has labs ordered by Dr. Awad gastroenterology and has follow-up with Dr. Awad gastroenterology next month. Condition is chronic and stable will continue to monitor. (2) GERD (gastroesophageal reflux disease): Code(s): K21.9 - Gastro-esophageal reflux disease without esophagitis Category: Medical Plan: Patient reports omeprazole was not helping her symptoms. She is being followed by gastroenterology he has follow-up next month. Condition is chronic and stable will continue to monitor. (3) Abdominal pain: Code(s): R10.9 - Unspecified abdominal pain Category: Medical Plan: Condition is chronic and stable. Patient is following up with gastroenterology. (4) Elevated LFTs: Code(s): R79.89 - Other specified abnormal findings of blood chemistry Category: Medical Plan: Condition is chronic and stable. Will repeat blood test and re-evaluate in 6 months at next visit. Will continue to monitor. (5) Diarrhea: Code(s): R19.7 - Diarrhea, unspecified Category: Medical Plan: Condition is chronic and stable. Patient being followed by gastroenterology has follow-up next month. Will continue to monitor. (6) Anxiety and depression: Code(s): F41.9 - Anxiety disorder, unspecified; F32.9 - Major depressive disorder, single episode, unspecified Category: Medical Plan: Patient no longer taking loratadine although still has significant anxiety and depression noted on PH Q 9 score. Patient agreeable to outpatient therapy referral. (7) Rash of face: Code(s): R21 - Rash and other nonspecific skin eruption Category: Medical Plan: Patient will appears like contact dermatitis to the face. No signs of infection. Will send Rx for topical hydrocortisone ointment. Will continue to monitor and reassess. (8) Overweight (BMI 25.0-29.9): Code(s): E66.3 - Overweight Category: Medical Plan: Patient trialing diet and exercise. Patient being followed by GI. Will continu e to monitor as this condition is chronic and stable. Plan Plan - Recommend continuation of current antiemetic medication as needed for nausea, and refill prescription. - Prescribe a topical corticosteroid for management of facial dry skin, with instructions on careful application to avoid sensitive areas. - Follow-up on stool testing and ensure coordination with insurance for coverage; suggest patient visit the laboratory if needed. - Consider further exploration of possible gastrointestinal diagnoses with the night baker, including celiac disease, IBS, or IBD. - Reinforce recommendations for managing gastrointestinal symptoms post- cholecystectomy with dietary modifications. - Refill prescription for Gasex for continued management of bloating symptoms. Orders: Orders Influenza [id number] Immunization Today Z23 - Encounter for immunization Medications: New hydrocortisone 2.5% 1 appl topical BID-TID PRN 453.6 grams 0RF itching Refilled ondansetron HCl 4 mg PO Q12H PRN 30 tabs 1RF nausea and vomiting R11.0 - Nausea simethicone (Gas Relief (simethicone)) 125 mg PO TID-QID PRN 90 tabs 2RF abdominal distention dicyclomine 10 mg PO TID 90 days PRN 270 caps 0RF abdominal pain Patient Instructions: Patient Instructions - Apply the prescribed topical steroid sparingly on affected areas of the face, avoiding eyes. - Continue taking the prescribed antiemetic as needed and ensure refills are up to date. - Avoid aggravating foods like red meats to manage gastrointestinal symptoms effectively. - Follow up with the lab for stool test submission and ensure insurance details are correct. - Contact healthcare provider if symptoms worsen or for any new concerns. - Schedule next annual physical examination around April for preventative health maintenance. Scribe Plan - Not visible on output: History of Present Illness The patient is a 28-year-old female presenting with a history of abdominal bloating and related symptoms. This issue began approximately six months ago, for which she initially consulted with Dr. Awad, her night baker. At that time, diagnostic evaluations, including a stool test, were ordered but were delayed due to insurance coverage issues. The patient expressed frustration with communication delays from the laboratory handling the stool test. Blood work related to this evaluation has been completed, though confirmation is pending. Differential diagnoses under consideration include celiac disease, IBS, and IBD. Treatment with omeprazole was attempted but proved ineffective. The patient has a history of a cholecystectomy, resulting in frequent diarrhea, exacerbated by certain foods such as red meat and possibly affecting social engagements. Additionally, she experiences dry skin, particularly affecting the facial area, which she manages with moisturizers but reports irritation and burning. There is no personal or family history of eczema. The patient also experiences anxiety, previously medicated with loratadine, which she discontinued due to adverse effects. Nausea remains a symptom, effectively managed with antiemetics. 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 - Reports dietary limitations post-cholecystectomy, avoiding chicken and preferring red meat despite adverse gastrointestinal effects. - Mentioned a past allergic reaction to shrimp, necessitating the use of an EpiPen. - Avoids certain foods due to concerns about exacerbating gastrointestinal symptoms. Review of Systems - Dermatologic: Reports very dry skin that is sometimes itchy and irritating. - Gastrointestinal: Denies hematochezia. Reports frequent diarrhea following the intake of specific foods. - General: Denies systemic symptoms following flu vaccination in the past. Feeling well today. Physical Exam Appearance: Alert. Oriented X3. No acute distress. Head: Normal external exam. Normocephalic. Atraumatic. Eyes: Pupils are equal, round, and reactive to light. Extraocular movements intact. Conjunctiva and sclera normal. Eyelids normal. Ears: External auditory canal normal. Tympanic membranes normal. Throat: Pharynx normal. Uvula midline. Moist mucous membranes. Neck: Normal inspection. Neck supple. Full range of motion. No adenopathy. Thyroid Normal. No meningeal signs. No neck mass noted. Cardiovascular: Normal heart rate and rhythm. Heart sound normal. No murmurs noted. Pulses normal throughout. Respiratory: No respiratory distress. Painless inspiration. Breath sounds normal. No wheezes/rales/rhonchi noted. Chest nontender. No accessory muscle usage noted or decreased air movement noted. Abdomen: Soft and nontender except for tenderness in the area where the gallbladder was previously located. Bowel sounds normal in all 4 quadrants. No distention noted. No organomegaly noted. No visible injury noted. Back: No costovertebral angle tenderness. Full range of motion noted. Skin: Skin warm and dry. Normal skin color. Normal skin turgor. No rashes/lesions/lacerations noted, but patient reports very dry skin, especially around the eyebrows, nose, and ears, sometimes itchy. Extremities: No lower extremity edema. Extremities exhibit normal range of motion. Extremities nontender. Neuro: Oriented X 3. No motor deficit. No sensory deficit. Reflexes normal. Results - Labs: Pending results from blood work associated with screening for gastrointestinal conditions. Plan - Recommend continuation of current antiemetic medication as needed for nausea, and refill prescription. - Prescribe a topical corticosteroid for management of facial dry skin, with instructions on careful application to avoid sensitive areas. - Follow-up on stool testing and ensure coordination with insurance for coverage; suggest patient visit the laboratory if needed. - Consider further exploration of possible gastrointestinal diagnoses with the night baker, including celiac disease, IBS, or IBD. - Reinforce recommendations for managing gastrointestinal symptoms post- cholecystectomy with dietary modifications. - Refill prescription for Gasex for continued management of bloating symptoms. Patient was informed and verbally consented to the use of an ambient scribe for clinic note documentation during this visit. Discussion Notes During the visit, I discussed the differential diagnoses of the patient?s abdominal symptoms, highlighting considerations for celiac disease, IBS, or IBD. I reviewed the limitations with prior insurance coverage impacting her lab work and advised on a follow-up with the laboratory. We talked about dry skin management, where I suggested a topical steroid but cautioned against overuse to prevent skin thinning. The patient decided to continue with the antiemetic, as it proved effective, and expressed the desire to obtain refills. I advised her on self-monitoring for any adverse reactions, particularly regarding the dry skin condition. We confirmed that she could coordinate with her pharmacy to address coverage issues related to her prescriptions. I provided reassurance around the use of flu vaccination based on her work setting, underscoring the absence of reactions in the past. Patient Instructions - Apply the prescribed topical steroid sparingly on affected areas of the face, avoiding eyes. - Continue taking the prescribed antiemetic as needed and ensure refills are up to date. - Avoid aggravating foods like red meats to manage gastrointestinal symptoms effectively. - Follow up with the lab for stool test submission and ensure insurance details are correct. - Contact healthcare provider if symptoms worsen or for any new concerns. - Schedule next annual physical examination around April for preventative health maintenance.
[2024-11-04 09:19] VITALS: BP 100/76; PULSE 64; TEMP 36.2; O2SAT 95; BMI 28.8
== END 2024-11-04 09:39 | disposition home or self-care (01) ==
PROVIDERS: PCP Internal Medicine; Visit Provider Internal Medicine
DX: R14.0 Abdominal distension (gaseous) (principal); K21.9 Gastro-esophageal reflux disease without esophagitis; R10.9 Unspecified abdominal pain; R79.89 Other specified abnormal findings of blood chemistry; R19.7 Diarrhea, unspecified; F41.9 Anxiety disorder, unspecified; F32.9 Major depressive disorder, single episode, unspecified; R21 Rash and other nonspecific skin eruption; E66.3 Overweight; Z23 Encounter for immunization

== ENCOUNTER → 2024-11-04 09:00 | Outpatient (BNVA) | payer OTHER, SELFPAY | PROVIDERS: PCP Internal Medicine; Visit Provider Internal Medicine | DX: Z23 Encounter for immunization (principal); R14.0 Abdominal distension (gaseous); K21.9 Gastro-esophageal reflux disease without esophagitis; R10.9 Unspecified abdominal pain; R79.89 Other specified abnormal findings of blood chemistry; R19.7 Diarrhea, unspecified; F41.9 Anxiety disorder, unspecified; F32.9 Major depressive disorder, single episode, unspecified; R21 Rash and other nonspecific skin eruption; E66.3 Overweight | CPT/HCPCS: 90471; 90656; 96127; 99212 ==

== ENCOUNTER 2024-11-15 15:09 | Outpatient (AMB) | payer OTHER, SELFPAY ==
[2024-11-15 15:27] VITALS: BMI 28.9
--- NOTE | 2024-11-15 15:27 | AM.OFFVISNUR ---
Vital Signs 11/15/24 15:27 Height 4 ft 11 in Weight 143 lb BMI 28.9 Intake Visit Reasons: DEPO Support Technician Required: No Allergies shrimp Allergy (Intermediate, Verified 11/04/24 10:02) hive Is last menstrual period known: No Post menopausal: No Patient : No Do you need a note to return to daycare/school/sports/work: No Nursing Note Clarice is here for scheduled Depo provera injection. No c/o, pt tolerated injection well. Pt advised to schedule her next Depo injection in 12 weeks. She is thinking about changing her control method to an IUD. Pt was advised to schedule an appointment with Yessenia for a control consult. Pt verbalizes understanding and agrees with plan. No further questions. Office Procedures Depo Questionnaire If YES to any of the following questions, please consult a provider. Date of last injection: 08/23/24 Date of last gynecology exam: 09/29/24 Menstrual pattern since last injection has been: Not Applicable Irregular bleeding?: No Breast lumps or other breast changes?: No Changes in weight or appetite?: No Depression or changes in mood?: No Abnormal hair growth or loss?: No Skin problems (rash, acne, discoloration)?: No Pain at the injection site?: No Headaches?: No Nervousness?: No Abdominal pain or cramping?: No Dizziness or nausea?: No Fatigue or weakness?: No Decrease in sexual drive?: No Chest pain or shortness of breath?: No Swelling in arms or legs?: No Form completed by?: Kanwal Costa RN Office Meds Depo-Provera 150 mg/mL intramuscular syringe Performing Provider: Yessenia Boss CNM Performing Location: [facility] Administered by: Kanwal Costa on 11/15/24 15:33 Dose Route Admin Location Dispensed Lot Number Expiration Date [facility] [employer] 150 mg IM RGM 1 mL [id number] 01/17/26 18921-129-11 MYLAN Assessment & Plan Assessment & Plan (1) Depo-Provera contraceptive status: Code(s): Z30.42 - Encounter for surveillance of injectable contraceptive Category: Social Hx Plan: Pt will schedule her next injection in 12 weeks. She is also thinking about changing her BC method, ?IUD. Pt was further advised to also schedule an appointment with Yessenia for a control consult to discuss options. Pt verbalizes understanding and agrees with plan. No further questions. Orders: Orders AMB Medroxyprogesterone Injection Patient Supplied Today Z30.42 - Encounter for surveillance of injectable contraceptive Coding Level of Care Code Established Pt Est Pt Level 1 (59696) Patient Type Established History Problem Focused Medical Decision Making Straight Forward Diagnoses Depo-Provera contraceptive status Z30.42 Time Spent (min) 20
--- OUTSIDE RECORDS SUMMARY | 2024-11-15 19:18 | XMS_ITS | Encounter Summary ---
Author Organization [facility] Address [address] [place] [address] Phone Care Team Providers Care Value Analysis Coordinator Name Role Phone Justina Weinstein MD Primary Care Provider Encounter Details Date Type Department Care Team (Late st Contact Info) Description 05/22/2012 Documentation EM Family Medicine [address] [place] [address] Family Medicine, Physician [address] [place], [place] [address] Social History Tobacco Use Types Packs/Day Years Used Date Smoking Tobacco: Never Assessed Comments Unknown Sex and Gender Information Value Date Recorded Sex Assigned at Not on file Legal Sex Female 4:50 PM EDT Gender Identity Not on file Sexual Orientation Not on file documented as of this encounter Plan of Treatment Not on file documented as of this encounter Visit Diagnoses Not on filedocumented in this encounter Care Teams Value Analysis Coordinator Relationship Specialty Start Date End Date Justina Weinstein MD [address] [place] [id number] PCP - General 05/30/17 04/15/23 documented as of this encounter
--- OUTSIDE RECORDS SUMMARY | 2024-11-15 19:18 | XMS_ITS | Encounter Summary ---
Author Organization [facility] Address [address] [place] [address] Phone Care Team Providers Care Play Back Operator Name Role Phone Justina Weinstein MD Primary Care Provider [phone] Encounter Details Date Type Department Care Team (Late st Contact Info) Description 06/05/2017 Conversion Encounter [facility] [address] [place] [address] Social History Tobacco Use Types Packs/Day Years Used Date Smoking Tobacco: Never Comments:Never smoker Comments Unknown Sex and Gender Information Value Date Recorded Sex Assigned at Not on file Legal Sex Female 4:50 PM EDT Gender Identity Not on file Sexual Orientation Not on file documented as of this encounter Plan of Treatment Not on file documented as of this encounter Visit Diagnoses Not on filedocumented in this encounter Care Teams Play Back Operator Relationship Specialty Start Date End Date Justina Weinstein MD [address] [place] [address] PCP - General 05/30/17 04/15/23 documented as of this encounter
--- OUTSIDE RECORDS SUMMARY | 2024-11-15 19:18 | XMS_ITS | Clinical Summary ---
Author Organization [facility] Address [address] [place] [address] Phone Care Team Providers Care Service Line Bus Cleaner Name Role Phone Unavailable Primary Care Provider Unavailabl e Immunizations Name Administration Dates Next Due DTP 09/30/1996, 5,05/19/1995, 995 DTaP 5 06/20/1999 HPV, Quadrivalent 10/02/2007,06/01/2007,04/01/20 07 Hep B, ped/adol 01/19/1996,03/11/1995,1994 Hib (PRP-T) 05/05/1996, 5,05/19/1995, 995 Influenza Split 07/27/2013,01/17/2011,08/26/2001 Influenza, injectable, trivalent 08/22/2008,04/2001 MMR 06/20/1999,05/05/1996 Meningococcal Conj (Menactra) MCV4P 04/01/2007 OPV 06/20/1999, 5,05/19/1995, 995 Tdap 04/01/2007 Varicella 01/18/2009,07/18/1998 Family History Relation Name Status Comments Brother 1 Alive Brother: Alive and well, Asthma, Alive and well Brother 2 Alive Brother: Alive and well, Asthma, Alive and well Father Alive Father: Alive a nd well Mother Alive Mother: Asthma Social History Tobacco Use Types Packs/Day Years Used Date Smoking Tobacco: Never Comments:Never smoker Comments Unknown Sex and Gender Information Value Date Recorded Sex Assigned at Not on file Legal Sex Female 4:50 PM EDT Gender Identity Not on file Sexual Orientation Not on file Last Filed Vital Signs Vital Sign Reading Time Taken Comments Blood Pressure 111/74 02/25/2015 12:00 AM EDT Pulse 87 02/25/2015 12:00 AM EDT Temperature 36.6 ??C (97.8 ??F) 02/25/2015 12:00 AM E DT Respiratory Rate - - Oxygen Saturation - - Inhaled Oxygen Concentration - - Weight 44.5 kg (98 lb) 02/25/2015 12:00 AM EDT Height 150.4 cm (4' 11.2 ) 02/25/2015 12:00 AM E DT Body Mass Index 19.66 02/25/2015 12:00 AM EDT Plan of Treatment Health Maintenance Due Date Last Done Comments DTaP,Tdap,and Td Vaccines (7 - Td or Tdap) 04/01/2017 04/01/2007, 06/20/1999, 09/30/1996, Additional history exists Influenza Vaccines (#1) 2024 07/27/20 13, 01/17/2011, 08/22/2008, Additional history exists COVID-19 Vaccine ( season) 2024 Hepatitis B Vaccines Completed 01/19/1996, 03/11/1995, 1994 HIB Vaccines Completed 05/05/1996, 11/1994, 05/19/1995, Additional history exists IPV Vaccines Completed 06/20/1999, 11/1994, 05/19/1995, Additional history exists MMR Vaccines Completed 06/20/1999, 05/05/1996 Meningococcal Vaccine Aged Out 04/01/2007 No amadou sandor eligible based on patient's age to complete this topic HPV Vaccines Completed 10/02/2007, 05/20, 04/01/2007 Varicella Vaccines Completed 01/18/2009, 07/18/1998 Hepatitis A Vaccines Aged Out No long er eligible based on patient's age to complete this topic Men B Vaccine Aged Out No longer elig ible based on patient's age to complete this topic Pneumococcal Vaccine Aged Out No long er eligible based on patient's age to complete this topic Procedures * Due to [place] law, this organization might not be sharing sensitive test results. Procedure Name Priority Date/Time Associated Diagnosis Comments CHLAMYDIA AND GONORRHEA, AMPLIFIED Routine 02/27/2015 4:53 PM EDT from Last 3 Months or Most Recently Relevant to Health Maintenance Results * Due to [place] law, this organization might not be sharing sensitive test results. * Chlamydia and Gonorrhoea, Amplified (02/27/2015 4:53 PM EDT) URINE GC AMP PROBE NEGATIVE [facility] Comment: No Neisseria Gonorrhoeae RNA detected in this patient's sample (REFERENCE RANGE/NORMAL VALUE: NOT DETECTED) NOTE: This test uses bailiff-mediated amplification method to detect rRNA from C.Trachomatis and N.Gonorrhoeae. A negative result does not preclude infection. In the case of a negative urine result, testing of an endocervical(female) or urethral(male) specimen is recommended if there is high clinical suspicion of infection. The performance characteristics of this test have not been evaluated in children. The Aptima Combo2 assay is not intended for the evaluation of suspected sexual abuse or for other medico-legal indications. The ordering provider should assess if the patient had consensual sex without risk of sexual abuse. Consult the [facility] if needed. Contact phone number . Therapeutic failure or success cannot be determined with the Aptima Combo2 assay since nucleic acid may persist following appropriate antimicrobial therapy. The Centers for Disease Control and Prevention (CDC) recommends confirmatory retesting using culture or a different nucleic acid amplification test when positive results occur, if indicated. Testing performed or reported by [facility], a Service of [facility], [address] [place] [address] Toby Boss MD, PhD, Director Of Manufacturing Operations URINE CHLAMYDIA AMP PROBE NEGATIVE [facility] Comment: No Chlamydia Trachomatis RNA detected in this patient's sample (REFERENCE RANGE/NORMAL VALUE: NOT DETECTED) 02/27/2015 4:53 PM EDT Narrative [facility] - 02/27/2015 4:53 PM EDT URINE CHLAMYDIA GC AMP PROBE us Narcisa Welch MD LAB MICROBIOLOGY - GENERAL O RDERABLES Final Result [facility] [address] [place] [address], [place] from Last 3 Months or Most Recently Relevant to Health Maintenance
--- OUTSIDE RECORDS SUMMARY | 2024-11-15 19:18 | XMS_ITS | Encounter Summary ---
Author Organization [facility] Address [address] [place] [address] Phone Care Team Providers Care Medical Record Librarian Name Role Phone Justina Weinstein MD Primary Care Provider [phone] Encounter Details Date Type Department Care Team (Late st Contact Info) Description 01/02/2012 Documentation EM Family Medicine [address] [place] [address] Family Medicine, Physician [address], [place] [address] Social History Tobacco Use Types Packs/Day Years [...] on filedocumented in this encounter Care Teams Medical Record Librarian Relationship Specialty Start Date End Date Justina Weinstein MD [address] [place] [id number] PCP - General 05/30/17 04/15/23 documented as of this encounter
== END 2024-11-15 15:24 | disposition home or self-care (01) ==
LOC: HO.HWS 15:09
PROVIDERS: PCP Internal Medicine; Visit Provider Advanced Practice Midwife
DX: Z30.42 Encounter for surveillance of injectable contraceptive (principal)

== ENCOUNTER → 2024-11-15 15:09 | Outpatient (BNVA) | payer OTHER, SELFPAY | PROVIDERS: PCP Internal Medicine; Visit Provider Advanced Practice Midwife | DX: Z30.42 Encounter for surveillance of injectable contraceptive (principal) | CPT/HCPCS: 96372; 99211; J1050 ==

== ENCOUNTER 2025-02-23 14:55 | Outpatient (AMB) | payer OTHER, SELFPAY ==
--- NOTE | 2025-02-23 14:56 | A.OFFVIS_ITS ---
Vital Signs 02/23/25 15:02 Height 4 ft 11 in Weight 144 lb BMI 29.1 BP 110/66 Intake Visit Reasons: Restart Depo Optometry Professor: Optometry Professor Present Allergies shrimp Allergy (Intermediate, Verified 02/23/25 14:56) hive Is last menstrual period known: Yes HPI Comments Details: Patient is here today for a follow up Depo, late for dose as of 01/19/2025. UPT is negative. She is not sexually active. She has tried the Mirena in the past which expelled 2 attempts, she forgets pills, and bled for a year with a Nexplanon. She is happy with the Depo-Provera and would like to continue. She is concerned about some tick talk information out there regarding brain tumors and has some questions. [facility] Medical History Screening for HPV (human papillomavirus) (~06/12/23) GERD (gastroesophageal reflux disease) COVID-19 vaccine series completed Cholelithiasis Anxiety and depression Surgical History History of laparoscopic cholecystectomy Family History Father No problems noted. Paternal Grandmother Brain tumor Mother No problems noted. Family/Other Dementia Hypertension Cancer Brother In good health Daughter In good health Social History Household Members Other:: minor child Housing: Condominium Are you a primary care transition manager to a significant other at home: Yes Do you presently have visiting nurse or other home services: No Alcohol intake: current Alcohol intake frequency: holidays/special occasions only Patient Tobacco Use Status: Never used Tobacco e-Cigarette/Vaping Use: Never Used Second Hand Smoke Exposure: No Substance Use Type: Marijuana service: No Current occupational status: employed Gender identity: Female Cognitive needs: No Hearing needs: No Vision needs: No Female Reproductive History Menstrual Age of Menarche: 14 Review of Systems Const All systems reviewed & are unremarkable except as noted in HPI and below Endo Reports no additional complaints Physical Exam Vital Signs: Last Vital Signs BP 110/66 02/23/25 15:02 BMI result Body Mass Index 29.1 Const General: cooperative, healthy appearing and no acute distress Psych Appearance: well kempt Attitude: cooperative Thought process: Normal thought process present Office Procedures Depo Questionnaire If YES to any of the following questions, please consult a provider. Date of last injection: 11/15/24 Menstrual pattern since last injection has been: Not Applicable Irregular bleeding?: No Breast lumps or other breast changes?: No Changes in weight or appetite?: No Depression or changes in mood?: No Abnormal hair growth or loss?: No Skin problems (rash, acne, discoloration)?: No Pain at the injection site?: No Headaches?: No Nervousness?: No Abdominal pain or cramping?: No Dizziness or nausea?: No Fatigue or weakness?: No Decrease in sexual drive?: No Chest pain or shortness of breath?: No Swelling in arms or legs?: No Form completed by?: Manuel Corey LPN Office Meds Depo-Provera 150 mg/mL intramuscular syringe Performing Provider: Yessenia Boss CNM Performing [place] [facility] Administered by: Arlene Corey LPN on 02/23/25 15:25 Dose Route Admin Location Dispensed Lot Number Expiration Date [facility] Reaming Machine Operator For Plastic 150 mg IM lt deltoid 1 mL [id number] 03/19/26 49129-317-73 MYLAN Results AMB Test Urine AMB Test Urine Negative Last Edit by PRISCA Paul on 02/23/25 15:03 Results Reviewed Results Reviewed: Laboratory Last Values Tst Clinic Negative 02/23/25 15:03 Assessment & Plan Assessment & Plan (1) Depo-Provera contraceptive status: Code(s): Z30.42 - Encounter for surveillance of injectable contraceptive Category: Social Hx Plan Depo-Provera injection given today, repeat Q 12 weeks. Counseled regarding literature and study regarding brain tumor study information, risks benefits explained. Additional counseling regarding long- term Depo-Provera use in bone density loss, prevention. Advised continue healthy diet with vitamins D and calcium, and weight-bearing exercises regularly. She would prefer to continue with the Depo-Provera. We discussed options for other control to explore based on her previous experience and symptoms she declines. control hormone use warnings: go to ER if and loss of vision, blindness, severe headache, chest pain or difficulty breathing, severe abdominal pain, or any pain or swelling in an extremity. Annual exam September 2025 is scheduled. Safe sex condoms always. The patient expressed understanding and agreement with the plan of care. All of her questions and concerns were addressed to the best of my ability. This note is constructed using voice recognition software. While every effort has been made to ensure accuracy, skid worker errors may have been included. Orders: Orders AMB HCG Urine Test Today Z32.02 - Encounter for test, result negative AMB Medroxyprogesterone Injection Patient Supplied Today Z30.42 - Encounter for surveillance of injectable contraceptive Medications: New Depo-Provera (medroxyprogesterone) 150 mg IM ONCE 1 mL 0RF NS Z30.42 - Encounter for surveillance of injectable contraceptive Changed From medroxyprogesterone (Depo-Provera) 150 mg IM [id number] 1 mL 4RF To medroxyprogesterone (Depo-Provera) 150 mg IM Q12W 1 mL 2RF Coding Level of Care Code Est Pt Level 3 (48940) Diagnoses Depo-Provera contraceptive status Z30.42
[2025-02-23 15:02] VITALS: BP 110/66; BMI 29.1
== END 2025-02-23 15:20 | disposition home or self-care (01) ==
LOC: HO.HWS 14:55
PROVIDERS: PCP Internal Medicine; Visit Provider Advanced Practice Midwife
DX: Z32.02 Encounter for pregnancy test, result negative (principal); Z30.42 Encounter for surveillance of injectable contraceptive
CPT/HCPCS: 99213

== ENCOUNTER → 2025-02-23 14:55 | Outpatient (BNVA) | payer OTHER, SELFPAY | PROVIDERS: PCP Internal Medicine; Visit Provider Advanced Practice Midwife | DX: Z30.42 Encounter for surveillance of injectable contraceptive (principal) | CPT/HCPCS: 81025; 96372; 99212; J1050 ==

== ENCOUNTER 2025-05-11 13:00 | Outpatient (AMB) | payer OTHER, SELFPAY ==
[2025-05-11 13:19] VITALS: BMI 29.0
--- NOTE | 2025-05-11 13:19 | AM.OFFVISNUR ---
Vital Signs 05/11/25 13:19 Height 4 ft 11 in Weight 143 lb 8 oz BMI 29.0 Intake Visit Reasons: depo Allergies shrimp Allergy (Intermediate, Verified 02/23/25 14:56) hive Nursing Note Clarice is here for her scheduled Depo-Provera inj. She reported some light brown spotting last week x 2days. Pt scheduled for her next AG in 10/13. Follw up in 12 wks for next inj. Office Procedures Depo Questionnaire If YES to any of the following questions, please consult a provider. Date of last injection: 02/23/25 Date of last gynecology exam: 09/29/24 Menstrual pattern since last injection has been: Light Irregular bleeding?: No Breast lumps or other breast changes?: No Changes in weight or appetite?: No Depression or changes in mood?: No Abnormal hair growth or loss?: No Skin problems (rash, acne, discoloration)?: No Pain at the injection site?: No Headaches?: Yes (occasional) Nervousness?: No Abdominal pain or cramping?: No Dizziness or nausea?: No Fatigue or weakness?: No Decrease in sexual drive?: No Chest pain or shortness of breath?: No Swelling in arms or legs?: No Form completed by?: Manuel Corey LPN Office Meds Depo-Provera 150 mg/mL intramuscular syringe Performing Provider: Yessenia Boss CNM Performing Location: [facility] [place] [facility] Administered by: Arlene Corey LPN on 05/11/25 13:21 Dose Route Admin Location Dispensed Lot Number Expiration Date [facility] Automation Specialist 150 mg IM RT. Gluteus 1 mL [id number] 03/19/26 24270-509-27 MYLAN Total Dispensed Waste 1 mL 0 % Assessment & Plan Assessment & Plan Orders: Orders AMB Medroxyprogesterone Injection Patient Supplied Today Z30.42 - Encounter for surveillance of injectable contraceptive Coding Level of Care Code Established Pt Est Pt Level 1 (96008) Patient Type Established History Problem Focused Exam Problem Focused Medical Decision Making Straight Forward Time Spent (min) 20
--- OUTSIDE RECORDS SUMMARY | 2025-05-11 13:26 | XMS_ITS | Encounter Summary ---
Author Organization [facility] Address [address] [place] [address] Phone Care Team Providers Care Manager Staffing Name Role Phone Justina Weinstein MD Primary Care Provider Encounter Details Date Type Department Care Team (Late st Contact Info) Description 06/05/2017 Conversion Encounter [facility] [address] [place] [address] Social History Tobacco Use Types Packs/Day Years [...] on filedocumented in this encounter Care Teams Manager Staffing Relationship Specialty Start Date End Date Justina Weinstein MD [address] [place] [address] PCP - General 05/30/17 04/15/23 documented as of this encounter
== END 2025-05-11 15:37 | disposition home or self-care (01) ==
LOC: HO.HWS 13:00
PROVIDERS: PCP Internal Medicine; Visit Provider Advanced Practice Midwife
DX: Z30.42 Encounter for surveillance of injectable contraceptive (principal)

== ENCOUNTER → 2025-05-11 13:00 | Outpatient (BNVA) | payer OTHER, SELFPAY | PROVIDERS: PCP Internal Medicine; Visit Provider Advanced Practice Midwife | DX: Z30.42 Encounter for surveillance of injectable contraceptive (principal) | CPT/HCPCS: 96372; 99211; J1050 ==

== ENCOUNTER 2025-05-25 09:07 | Outpatient (AMB) | payer OTHER, SELFPAY ==
--- NOTE | 2025-05-25 09:12 | MHC.PC.OV ---
Vital Signs 05/25/25 09:13 Height 4 ft 11 in Weight 141 lb BMI 28.5 BP 110/66 Blood Pressure Location Lt brachial Position Sitting Pulse 86 Pulse Source Pulse Oximeter Temp 97.3 F Temp Source Temporal Artery Scan Pulse Oximetry (%) 100 Oxygen Delivery Method Room Air Intake Visit Reasons: ANNUAL Intake Note: Patient is here today for a physical. Moving Picture Operator Required: No Silverlight Developer: Not Required per policy Accompanied by: Self / Same As Patient Allergies shrimp Allergy (Intermediate, Verified 05/25/25 16:18) hive Medication List - Last Reconciled 05/25/25 by Cm Thornton MD dicyclomine 10 mg PO TID PRN 90 days epinephrine (EpiPen) 0.3 mg (0.3 mL) IM Q10M PRN fluticasone propionate 50 mcg/actuation 1 spray intranasal DAILY 90 days hydrocortisone 2.5% 1 appl topical BID-TID PRN hydrocortisone 2.5% 1 appl topical BID PRN medroxyprogesterone (Depo-Provera) 150 mg IM Q12W multivitamin 1 tab PO DAILY ondansetron HCl 4 mg PO Q12H PRN simethicone (Gas Relief (simethicone)) 125 mg PO TID-QID PRN wheat dextrin (Benefiber Healthy Shape) 5 grams PO DAILY 90 days Tobacco use date assessed: 05/25/25 Dental Screening Dental Screen Date: 11/04/24 [facility] Medical History Screening for HPV (human papillomavirus) (~06/12/23) GERD (gastroesophageal reflux disease) COVID-19 vaccine series completed Cholelithiasis Anxiety and depression Surgical History History of laparoscopic cholecystectomy Family History Father No problems noted. Paternal Grandmother Brain tumor Mother No problems noted. Family/Other Dementia Hypertension Cancer Brother In good health Daughter In good health Social History Household Members Other:: minor child Housing: Condominium Are you a primary college and career counselor to a significant other at home: Yes Do you presently have visiting nurse or other home services: No Alcohol intake: current Alcohol intake frequency: holidays/special occasions only Patient Tobacco Use Status: Never used Tobacco e-Cigarette/Vaping Use: Currently Using Second Hand Smoke Exposure: No Substance Use Type: Marijuana service: No Current occupational status: employed Gender identity: Female Cognitive needs: No Hearing needs: No Vision needs: No Female Reproductive History Menstrual Age of Menarche: 14 Questionnaire PHQ-9 Over the last 2 weeks, how often have you been bothered by any of the following problems? 1. Little interest or pleasure in doing things: not at all 2. Feeling down, depressed, or hopeless: not at all 3. Trouble falling or staying asleep, or sleeping too much: several days 4. Feeling tired or having little energy: several days 5. Poor appetite or overeating: not at all 6. Feeling bad about yourself - or that you are a failure or have let yourself or your family down: not at all 7. Trouble concentrating on things, such as reading the newspaper or watching television: not at all 8. Moving or speaking so slowly that other people could have noticed. Or the opposite - being so fidgety or restless that you have been moving around a lot more than usual: not at all 9. Thoughts that you would be better off or of hurting yourself in some way: not at all Total score: 2 Depression Screening Interpretation: Positive Depression Screening Done: Yes Source: Developed by Drs. Derick Riley, Alejandra Scherer, Cory Castro and colleagues, with an educational sarah from [employer]. Thrive Questionnaire Date Thrive assessed: 05/25/25 I am a: Parent/Caregiver What is your living situation today?: I have a steady place to live Within the past 12 months, did the food you bought not last and you didn't have the money to get more?: Often true Within the past 12 months, did you worry whether your food would run out before you got money to buy more?: Often true Do you have trouble paying for medicines?: No Do you have trouble getting transportation to medical appointments?: No Do you have trouble paying your heating and electricity bill?: No Do you have trouble taking care of your child, family member or friend?: No Do you have trouble with day-to-day activities such as bathing, preparing meals, shopping, managing finances, etc.?: No Are you currently unemployed and looking for a job?: No Are you interested in more education?: No Please select the resources that you would like help with: None Currently or been in a relationship where the following occur: I choose not to answer THRIVE Score: 2 AUDIT C Alcohol Use Questionnaire (AUDIT-C) 1. How often do you have a drink containing alcohol?: Monthly or less 2. How many drinks containing alcohol do you have on a typical day when you are drinking?: 1 or 2 3. How often do you have six or more drinks on one occasion?: Never Total Score: 1 MYAH-7 AMB Questionnaire MYAH-7 Date MYAH - 7 assessed: 05/25/25 Feeling nervous, anxious, or on edge: 2 = More than half the days Not being able to stop or control worryin = Not at all Worrying too much about different things: 0 = Not at all Trouble relaxin = More than half the days Being so restless that it is hard to sit still: 0 = Not at all Becoming easily annoyed or irritable: 3 = Nearly every day Feeling afraid as if something awful might happen: 0 = Not at all Total MYAH-7 score (0-4 normal; 5-9 mild; 10-14 moderate; 15-21 severe): 7 Source: Developed by Drs. Derick Riley, Alejandra Scherer, Cory Castro and colleagues, with an educational sarah from [employer]. Physical exam (Primary Care) Vital Signs: Last Vital Signs Temp 97.3 F 05/25/25 09:13 Pulse 86 05/25/25 09:13 BP 110/66 05/25/25 09:13 Pulse Ox 100 05/25/25 09:13 Oxygen Delivery Method Room Air 05/25/25 09:13 BMI result Body Mass Index 28.5 Tobacco/Smoking Status: Tobacco use Status Tobacco use date assessed 05/25/25 05/25/25 09:28 Patient Tobacco Use Status Never used Tobacco 05/25/25 09:28 e-Cigarette/Vaping Use Currently Using 05/25/25 09:28 PHQ-9: PHQ-9 Score PHQ-9: Total score 2 05/25/25 09:28 Depression Screening Interpretation: Positive Thrive Assessment: Date of Thrive Assessment Date Thrive assessed 05/25/25 05/25/25 09:28 Currently or been in a relationship where the following occur: I choose not to answer Const General: cooperative and healthy appearing Nutritional Appearance: well nourished Orientation/consciousness: patient oriented x3 Limitations: no limitations HENMT Head: Yes normal to inspection Eyes General: appearance normal, both eyes and all related structures Neck Neck: Yes normal visual inspection Chest Chest palpation & inspection: normal palpation of entire chest wall Resp Effort & Inspection: normal respiratory effort Neuro General: patient oriented x3 Coding Level of Care Code Est Pt Prev Care 18-39y(01650) Diagnoses Anxiety and depression F41.9; F32.9 Annual physical exam Z00.00 Assessment & Plan Assessment & Plan (1) Anxiety and depression: Code(s): F41.9 - Anxiety disorder, unspecified; F32.9 - Major depressive disorder, single episode, unspecified Category: Medical Plan: No medications needed. (2) Annual physical exam: Code(s): Z00.00 - Encounter for general adult medical examination without abnormal findings Plan: BW ordered. Counselling on the importance of diet, exercise done. Orders: Orders Basic Metabolic Panel Today F32.9 - Major depressive disorder, single episode, unspecified, F41.9 - Anxiety disorder, unspecified Thyroid Stimulating Hormone Today F32.9 - Major depressive disorder, single episode, unspecified, F41.9 - Anxiety disorder, unspecified UA and rflx microscopic Today F32.9 - Major depressive disorder, single episode, unspecified, F41.9 - Anxiety disorder, unspecified Complete Blood Count no Diff Today F32.9 - Major depressive disorder, single episode, unspecified, F41.9 - Anxiety disorder, unspecified Medications: Refilled simethicone (Gas Relief (simethicone)) 125 mg PO TID-QID PRN 90 tabs 2RF abdominal distention
[2025-05-25 09:13] VITALS: BP 110/66; PULSE 86; TEMP 36.3; O2SAT 100; BMI 28.5
--- OUTSIDE RECORDS SUMMARY | 2025-05-25 09:26 | XMS_ITS | Encounter Summary ---
Author Organization [facility] Address [address] [place] [address] Phone Care Team Providers Care General Production Manager Name Role Phone Justina Weinstein MD Primary Care Provider [phone] Encounter Details Date Type Department Care Team (Late st Contact Info) Description 06/05/2017 Conversion Encounter [facility] [address] [place] [address] Social History Tobacco Use Types Packs/Day Years [...] on filedocumented in this encounter Care Teams General Production Manager Relationship Specialty Start Date End Date Justina Weinstein MD [address] [place] [address] PCP - General 05/30/17 04/15/23 documented as of this encounter
== END 2025-05-25 09:50 | disposition home or self-care (01) ==
LOC: HO.HMCH 09:08
PROVIDERS: PCP Internal Medicine; Visit Provider Internal Medicine
DX: F41.9 Anxiety disorder, unspecified (principal); F32.9 Major depressive disorder, single episode, unspecified; Z00.00 Encounter for general adult medical examination without abnormal findings

== ENCOUNTER 2025-05-25 09:07 | Outpatient (REF) | payer OTHER, SELFPAY ==
[2025-05-25 10:05] LABS: MANUAL DIFF FLAG NO
[2025-05-25 10:47] LABS: Hematocrit 40.6 % (37.0-47.0); Hemoglobin 13.5 g/dl (12.0-16.0); Imm Gran Abs Auto 0.03 X10*3/uL (0.00-0.03); Imm Gran Pct Auto 0.3 % (0.0-0.4); Lymphocytes Absolute Auto 2.3 X10*3/uL (1.2-4.9); Mean Corpuscular HGB Conc 33.3 g/dl (31.0-35.0); Mean Corpuscular Hemoglobin 30.5 pg (27.0-33.0); Mean Corpuscular Volume 91.9 fL (80.0-98.0); NRBC Abs Auto 0.000 X10*3/uL (0.0-0.012); NRBC Pct Auto 0.0 /100WBC (0.0-0.2); Platelet Count 350 X10*3/uL (160-400); Red Blood Count 4.42 X10*6/uL (4.20-5.50); White Blood Count 10.0 X10*3/uL (4.8-10.8)
[2025-05-25 10:54] LABS: Hemoglobin A1C 122.4620 umol/L; Total Hemoglobin (HGBA1C) 3673.2174 umol/L
[2025-05-25 11:29] LABS: Alanine Aminotransferase 35 U/L (0-31); Albumin Level 4.3 g/dL (3.5-5.0); Alkaline Phosphatase 55 U/L (39-117); Anion Gap 12 (12-20); Aspartate Amino Transferase 21 U/L (5-31); Blood Urea Nitrogen 9 mg/dL (9-16); Calcium 8.8 mg/dL (8.4-10.2); Carbon Dioxide 25 mmol/L (22-29); Chloride 109 mmol/L (96-108); Cholesterol 134 mg/dL (<200); Estimated Glomerular Filt Rate > 60; HDL Cholesterol 32 mg/dL (>40); Magnesium 2.1 mg/dL (1.6-2.6); Potassium 3.8 mmol/L (3.3-5.1); Sodium 142 mmol/L (135-145); Total Protein 6.7 g/dL (6.5-8.0); Triglycerides 123 mg/dL (<150)
[2025-05-25 12:02] LABS: Folate 2.6 ng/mL (> or = 4.0); Vitamin B12 384 pg/mL (200-900)
== END 2025-05-25 09:08 | disposition home or self-care (01) ==
LOC: HO.LAB 09:07
PROVIDERS: Physician Assistant Medical; PCP Internal Medicine; Visit Provider Internal Medicine
DX: Z00.00 Encounter for general adult medical examination without abnormal findings (principal); F41.9 Anxiety disorder, unspecified; F32.9 Major depressive disorder, single episode, unspecified; R14.0 Abdominal distension (gaseous); R11.0 Nausea; R79.89 Other specified abnormal findings of blood chemistry; R21 Rash and other nonspecific skin eruption; K21.9 Gastro-esophageal reflux disease without esophagitis; R19.7 Diarrhea, unspecified; R10.9 Unspecified abdominal pain; E66.3 Overweight; Z68.28 Body mass index [BMI] 28.0-28.9, adult; Z13.31 Encounter for screening for depression; Z13.39 Encounter for screening examination for other mental health and behavioral disorders
CPT/HCPCS: 36415; 80053; 80061; 80076; 82306; 82607; 82746; 83036; 83735; 84443; 85025; 99395

== ENCOUNTER 2025-08-10 14:12 | Outpatient (AMB) | payer OTHER, SELFPAY ==
[2025-08-10 14:24] VITALS: BMI 28.9
--- NOTE | 2025-08-10 14:24 | AM.OFFVISNUR ---
Vital Signs 08/10/25 14:24 Height 4 ft 11 in Weight 143 lb BMI 28.9 Intake Visit Reasons: DEPO Allergies shrimp Allergy (Intermediate, Verified 05/25/25 16:18) hive Nursing Note Pt is here today for her Depo-Provera inj. She has had some spotting on and off since 07/27/25, but light per pt. AG is scheduled in September. Will discuss with provider at that time if her spotting continues. Office Procedures Depo Questionnaire If YES to any of the following questions, please consult a provider. Date of last injection: 05/11/25 Date of last menstrual period: 07/27/25 Date of last gynecology exam: 09/29/24 Menstrual pattern since last injection has been: Light Irregular bleeding?: Yes (spotting on and off, just needs pantyliners.) Breast lumps or other breast changes?: No Changes in weight or appetite?: No Depression or changes in mood?: No Abnormal hair growth or loss?: No Skin problems (rash, acne, discoloration)?: No Pain at the injection site?: No Headaches?: No Nervousness?: No Abdominal pain or cramping?: No Dizziness or nausea?: No Fatigue or weakness?: No Decrease in sexual drive?: No Chest pain or shortness of breath?: No Swelling in arms or legs?: No Form completed by?: Manuel Corey LPN Office Meds Depo-Provera 150 mg/mL intramuscular syringe Performing Provider: Yessenia Boss CNM Performing Location: [facility] Administered by: Arlene Corey LPN on 08/10/25 14:25 Dose Route Admin Location Dispensed Lot Number Expiration Date [facility] Silk Screen Cutter 150 mg IM rt. gluteus 1 mL [id number] 10/19/27 03604-148-84 [facility] Total Dispensed Waste 1 mL 0 % Assessment & Plan Assessment & Plan Orders: Orders AMB Medroxyprogesterone Injection Patient Supplied Today Z30.42 - Encounter for surveillance of injectable contraceptive Coding Level of Care Code Established Pt Est Pt Level 1 (62550) Patient Type Established History Problem Focused Exam Problem Focused Medical Decision Making Straight Forward Time Spent (min) 20
== END 2025-08-10 14:30 | disposition home or self-care (01) ==
LOC: HO.HWS 14:12
PROVIDERS: PCP Internal Medicine; Visit Provider Advanced Practice Midwife
DX: Z30.42 Encounter for surveillance of injectable contraceptive (principal)

== ENCOUNTER → 2025-08-10 14:12 | Outpatient (BNVA) | payer OTHER, SELFPAY | PROVIDERS: PCP Internal Medicine; Visit Provider Advanced Practice Midwife | DX: Z30.013 Encounter for initial prescription of injectable contraceptive (principal) | CPT/HCPCS: 96372; 99211; J1050 ==

== ENCOUNTER 2025-09-01 08:56 | Outpatient (AMB) | payer OTHER, SELFPAY ==
[2025-09-01 09:09] VITALS: BP 122/100; PULSE 91; TEMP 36.8; O2SAT 99; BMI 29.6
--- NOTE | 2025-09-01 09:09 | A.OFFPC_ITS ---
Vital Signs 09/01/25 09:09 Height 4 ft 11 in Weight 146 lb 8 oz BMI 29.6 BP 122/100 H Blood Pressure Location Lt brachial Position Sitting Pulse 91 Pulse Source Pulse Oximeter Temp 98.3 F Temp Source Temporal Artery Scan Pulse Oximetry (%) 99 Oxygen Delivery Method Room Air Intake Visit Reasons: Pain in shoulders Intake Note: Patient is here today for a physical. Control Room Operator Required: No Office Assistant Receptionist: Not Required per policy Accompanied by: Self / Same As Patient Allergies shrimp Allergy (Intermediate, Verified 09/01/25 09:10) hive Tobacco use date assessed: 05/25/25 Dental Screening Dental Screen Date: 11/04/24 Did you have a dental visit in the last 12 months?: Yes Did you have a dental problem in the last 6 months where you did not have access to dental care?: No Was dental information given to patient?: Patient has dentist [facility] Medical History Elevated ALT measurement Low HDL (under 40) Folic acid deficiency Screening for HPV (human papillomavirus) (~06/12/23) GERD (gastroesophageal reflux disease) COVID-19 vaccine series completed Cholelithiasis Anxiety and depression Surgical History History of laparoscopic cholecystectomy Family History Father No problems noted. Paternal Grandmother Brain tumor Mother No problems noted. Family/Other Dementia Hypertension Cancer Brother In good health Daughter In good health Social History Household Members Other:: minor child Housing: Condominium Are you a primary housekeeper caregiver to a significant other at home: Yes Do you presently have visiting nurse or other home services: No Alcohol intake: current Alcohol intake frequency: holidays/special occasions only Patient Tobacco Use Status: Never used Tobacco e-Cigarette/Vaping Use: Currently Using Frequency of e-Cigarette/Vaping Use: Sometimes Second Hand Smoke Exposure: No Substance Use Type: Marijuana service: No Current occupational status: employed Gender identity: Female Cognitive needs: No Hearing needs: No Vision needs: No Female Reproductive History Menstrual Age of Menarche: 14 Questionnaire PHQ-9 Over the last 2 weeks, how often have you been bothered by any of the following problems? 1. Little interest or pleasure in doing things: not at all 2. Feeling down, depressed, or hopeless: not at all 3. Trouble falling or staying asleep, or sleeping too much: several days 4. Feeling tired or having little energy: several days 5. Poor appetite or overeating: not at all 6. Feeling bad about yourself - or that you are a failure or have let yourself or your family down: not at all 7. Trouble concentrating on things, such as reading the newspaper or watching television: not at all 8. Moving or speaking so slowly that other people could have noticed. Or the opposite - being so fidgety or restless that you have been moving around a lot more than usual: not at all 9. Thoughts that you would be better off or of hurting yourself in some way: not at all Total score: 2 Depression Screening Interpretation: Positive Depression Screening Done: Yes Source: Developed by Drs. Derick Riley, Alejandra Scherer, Cory Castro and colleagues, with an educational sarah from [employer] Thrive Questionnaire Date Thrive assessed: 05/25/25 I am a: Parent/Caregiver What is your living situation today?: I have a steady place to live Within the past 12 months, did the food you bought not last and you didn't have the money to get more?: Often true Within the past 12 months, did you worry whether your food would run out before you got money to buy more?: Often true Do you have trouble paying for medicines?: No Do you have trouble getting transportation to medical appointments?: No Do you have trouble paying your heating and electricity bill?: No Do you have trouble taking care of your child, family member or friend?: No Do you have trouble with day-to-day activities such as bathing, preparing meals, shopping, managing finances, etc.?: No Are you currently unemployed and looking for a job?: No Are you interested in more education?: No Please select the resources that you would like help with: None Currently or been in a relationship where the following occur: I choose not to answer THRIVE Score: 2 AUDIT C Alcohol Use Questionnaire (AUDIT-C) 1. How often do you have a drink containing alcohol?: Monthly or less 2. How many drinks containing alcohol do you have on a typical day when you are drinking?: 1 or 2 3. How often do you have six or more drinks on one occasion?: Never Total Score: 1 MYAH-7 AMB Questionnaire MYAH-7 Date MYAH - 7 assessed: 05/25/25 Feeling nervous, anxious, or on edge: 2 = More than half the days Not being able to stop or control worryin = Not at all Worrying too much about different things: 0 = Not at all Trouble relaxin = More than half the days Being so restless that it is hard to sit still: 0 = Not at all Becoming easily annoyed or irritable: 3 = Nearly every day Feeling afraid as if something awful might happen: 0 = Not at all Total MYAH-7 score (0-4 normal; 5-9 mild; 10-14 moderate; 15-21 severe): 7 Source: Developed by Drs. Derick Riley, Alejandra Scherer, Cory Castro and colleagues, with an educational sarah from [employer] Physical exam (Primary Care) Vital Signs: Last Vital Signs Temp 98.3 F 09/01/25 09:09 Pulse 91 09/01/25 09:09 BP 122/100 H 09/01/25 09:09 Pulse Ox 99 09/01/25 09:09 Oxygen Delivery Method Room Air 09/01/25 09:09 BMI result Body Mass Index 29.6 Tobacco/Smoking Status: Tobacco use Status Tobacco use date assessed 05/25/25 09/01/25 09:16 Patient Tobacco Use Status Never used Tobacco 09/01/25 09:16 e-Cigarette/Vaping Use Currently Using 09/01/25 09:16 PHQ-9: PHQ-9 Score PHQ-9: Total score 2 09/01/25 09:16 Depression Screening Interpretation: Positive Thrive Assessment: Date of Thrive Assessment Date Thrive assessed 05/25/25 09/01/25 09:16 Currently or been in a relationship where the following occur: I choose not to answer Coding Level of Care Code Est Pt Level 4 (88791) Complex EM visit Add On G2211 Diagnoses Left shoulder strain S46.912A Assessment & Plan Assessment & Plan (1) Left shoulder strain: Code(s): S46.912A - Strain of unspecified muscle, fascia and tendon at shoulder and upper arm level, left arm, initial encounter Plan: History of Present Illness - The patient is a 29-year-old female presenting with left shoulder pain. - The pain began three to four days ago, is localized to the left shoulder, and is described as feeling like the aftermath of lifting weights, although she does not work out. - The pain is severe enough to disrupt her sleep, requiring her to use pillows for support and to toss and turn throughout the night. - The patient reports pain upon lifting her arm. - She has tried ibuprofen with little to no relief. - There was no recent trauma or new activity preceding the onset of pain. 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 - One to two months ago, a massage therapist noted that her shoulder muscles were very tight. 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 Review of Systems - Musculoskeletal: Reports severe left shoulder pain for 3-4 days, making it difficult to lift the arm. - Reports occasional right shoulder pain. - Denies any injury. - Constitutional: Reports sleep disturbance due to shoulder pain. Physical Exam General: Cooperative and healthy appearing Nutritional Appearance: Well nourished Orientation/consciousness: Patient oriented x3 Limitations: No limitations Head: Normal to inspection General: Appearance normal, both eyes and all related structures Neck: Normal visual inspection Chest: Normal palpation of entire chest wall Respiratory: N ormal respiratory effort Neurology: Patient oriented x3, muscular strain in the left shoulder noted. Results Plan - The patient was diagnosed with muscular strain, likely from overuse. - Recommended rest for the affected arm for a few days and instructed the patient to inform her employer of this restriction. - Prescribed an anti-inflammatory and a muscle relaxant to be taken at night. - Advised ancillary measures including the use of a heating pad or hot towels. - Instructed the patient to follow up in a couple of weeks if her symptoms do not improve. - Prescriptions will be [place] to [facility] [place]. Discussion Notes I explained to the patient that her shoulder pain is most likely a muscular strain due to overuse. I advised that treatment involves resting the arm for a few days. I have prescribed an anti-inflammatory medication to reduce inflammation and a muscle relaxant for nighttime use. We discussed using a heating pad or hot towel for symptomatic relief. I instructed her to return for a follow-up visit in a couple of weeks if she is not feeling better. Patient Instructions - Your shoulder pain is due to a muscle strain. - Rest your left arm for a few days. - Let your boss know that the doctor said you should not use your left arm for a few days. - An anti-inflammatory medication and a muscle relaxant have been prescribed for you. - Take the muscle relaxant at night. - Use a heating pad or a hot towel on your shoulder for relief. - If you are not feeling better in a couple of weeks, please let me know.
--- OUTSIDE RECORDS SUMMARY | 2025-09-01 09:36 | XMS_ITS | Encounter Summary ---
Author Organization [facility] Address [address] [place] [address] Phone Care Team Providers Care Flat Folder Name Role Phone Justina Weinstein MD Primary Care Provider [phone] Encounter Details Date Type Department Care Team (Late st Contact Info) Description 05/22/2012 Documentation EM Family Medicine [address] [place] [address] Family Medicine, Physician [address], [place] [id number] Social History Tobacco Use Types Packs/Day Years [...] on filedocumented in this encounter Care Teams Flat Folder Relationship Specialty Start Date End Date Justina Weinstein MD [address] [place] [id number] PCP - General 05/30/17 04/15/23 documented as of this encounter
--- OUTSIDE RECORDS SUMMARY | 2025-09-01 09:36 | XMS_ITS | Encounter Summary ---
Author Organization [facility] Address [address] [place] [address] Phone Care Team Providers Care Cage Clerk Name Role Phone Justina Weinstein MD Primary Care Provider [phone] Encounter Details Date Type Department Care Team (Late st Contact Info) Description 01/02/2012 Documentation EM Family Medicine [address] [place] [address] Family Medicine, Physician [address], [place] [address] Social History Tobacco Use Types Packs/Day Years [...] on filedocumented in this encounter Care Teams Cage Clerk Relationship Specialty Start Date End Date Justina Weinstein MD [address] [place] [id number] PCP - General 05/30/17 04/15/23 documented as of this encounter
--- OUTSIDE RECORDS SUMMARY | 2025-09-01 09:36 | XMS_ITS | Clinical Summary ---
Author Organization [facility] Address [address] [place] [address] Phone Care Team Providers Care Craft Demonstrator Name Role Phone Unavailable Primary Care Provider Unavailabl e Immunizations Immunization Administration Dates Next Due DTP 09/30/1996, 5,05/19/1995, [...] 87 02/25/2015 12:00 AM EDT Temperature 36.6 C (97.8 F) 02/25/2015 12:00 AM EDT Respiratory Rate - - Oxygen Saturation - [...] 09/30/1996, Additional history exists Influenza Vaccines (#1) 2025 07/27/20 13, 01/17/2011, 08/22/2008, Additional history exists COVID-19 Vaccine ( season) 2025 Hepatitis B Vaccines Completed 01/19/1996, 03/11/1995, 1994 [...] complete this topic Procedures * Due to [place] [employer] law, this organization might not be sharing sensitive test results. Procedure Name Priority Date/Time Associated Diagnosis Comments CHLAMYDIA AND GONORRHEA, AMPLIFIED Routine 02/27/2015 4:53 PM EDT from Last 3 Months or Most Recently Relevant to Health Maintenance Results * Due to [place] state law, this organization might not be sharing sensitive test results. * Chlamydia and Gonorrhoea, Amplified (02/27/2015 4:53 PM EDT) URINE GC AMP PROBE NEGATIVE [facility] Comment: No Neisseria Gonorrhoeae RNA detected in this patient's sample (REFERENCE RANGE/NORMAL VALUE: NOT DETECTED) NOTE: This test uses head girls golf coach-mediated amplification method to detect rRNA from C.Trachomatis [...] without risk of sexual abuse. Consult the [facility] if needed. Contact phone number . Therapeutic failure or success cannot be determined with the Aptima Combo2 assay since nucleic acid may persist following appropriate antimicrobial therapy. The Centers for Disease Control and Prevention (CDC) recommends confirmatory retesting using culture or a different nucleic acid amplification test when positive results occur, if indicated. Testing performed or reported by [facility], a Service of [facility], [address] [place] [address] Toby Boss MD, PhD, Greenskeeper Head URINE CHLAMYDIA AMP PROBE NEGATIVE [facility] Comment: No Chlamydia Trachomatis RNA detected in this patient's sample (REFERENCE RANGE/NORMAL VALUE: NOT DETECTED) 02/27/2015 4:53 PM EDT Narrative [facility] - 02/27/2015 4:53 PM EDT URINE CHLAMYDIA GC AMP PROBE us Narcisa Welch MD LAB MICROBIOLOGY - GENERAL O RDERABLES Final Result [facility] [address] [place] [address], from Last 3 Months or Most Recently Relevant to Health Maintenance
--- OUTSIDE RECORDS SUMMARY | 2025-09-01 09:36 | XMS_ITS | Encounter Summary ---
Author Organization [facility] Address [address] [place] [address] Phone Care Team Providers Care Business Technology Teacher Name Role Phone Justina Weinstein MD Primary Care Provider [phone] Encounter Details Date Type Department Care Team (Late st Contact Info) Description 06/05/2017 Conversion Encounter [facility] [address] [place] [address] Social History Tobacco Use Types Packs/Day Years [...] on filedocumented in this encounter Care Teams Business Technology Teacher Relationship Specialty Start Date End Date Justina Weisntein MD [address] [place] [address] PCP - General 05/30/17 04/15/23 documented as of this encounter
== END 2025-09-01 09:29 | disposition home or self-care (01) ==
PROVIDERS: PCP Internal Medicine; Visit Provider Internal Medicine
DX: S46.912A Strain of unspecified muscle, fascia and tendon at shoulder and upper arm level, left arm, initial encounter (principal)

== ENCOUNTER → 2025-09-01 08:56 | Outpatient (BNVA) | payer OTHER, SELFPAY | PROVIDERS: PCP Internal Medicine; Visit Provider Internal Medicine | DX: S46.912A Strain of unspecified muscle, fascia and tendon at shoulder and upper arm level, left arm, initial encounter (principal); X58.XXXA Exposure to other specified factors, initial encounter; Y93.9 Activity, unspecified; Y92.9 Unspecified place or not applicable; Y99.9 Unspecified external cause status | CPT/HCPCS: 99212 ==

== ENCOUNTER 2025-10-05 11:25 | Outpatient (REF) | payer OTHER, SELFPAY ==
[2025-10-06 04:45] LABS: HBc Num1 0.11 S/CO (0.00-0.79); HIV Num 1 0.05 S/CO (0.00-0.99); ~HepC Num1 0.32 S/CO (0.00-0.79); ~Hepatitis C Antibody Nonreactive (Nonreactive)
[2025-10-06 05:00] LABS: Syphilis Screen Nonreactive (Nonreactive)
== END 2025-10-05 11:26 | disposition home or self-care (01) ==
LOC: HO.LAB 11:25
PROVIDERS: PCP Internal Medicine; Visit Provider Advanced Practice Midwife
DX: Z01.419 Encounter for gynecological examination (general) (routine) without abnormal findings (principal); Z30.42 Encounter for surveillance of injectable contraceptive; Z20.2 Contact with and (suspected) exposure to infections with a predominantly sexual mode of transmission; Z11.4 Encounter for screening for human immunodeficiency virus [HIV]; Z11.59 Encounter for screening for other viral diseases
CPT/HCPCS: 36415; 86704; 86780; 86803; 87389

== ENCOUNTER 2025-10-05 11:25 | Outpatient (AMB) | payer OTHER, SELFPAY ==
--- NOTE | 2025-10-05 11:37 | A.OFFVIS_ITS ---
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 no concerns but does want vag swabs Health Information Administrator Required: No Information Interpreted: non-clinical & clinical Group Work Program Director: Group Work Program Director Present ([place]) Accompanied by: Self / Same As Patient Allergies shrimp Allergy (Intermediate, Verified 10/05/25 11:41) hive Medication List - Last Reconciled 10/05/25 by Moni Velazquez LPN cyclobenzaprine 10 mg PO BEDTIME dicyclomine 10 mg PO TID PRN 90 days epinephrine (EpiPen) 0.3 mg (0.3 mL) IM Q10M PRN fluticasone propionate 50 mcg/actuation 1 spray intranasal DAILY 90 days folic acid 1 mg PO DAILY hydrocortisone 2.5% 1 appl topical BID-TID PRN hydrocortisone 2.5% 1 appl topical BID PRN medroxyprogesterone (Depo-Provera) 150 mg IM Q12W meloxicam 15 mg PO DAILY multivitamin 1 tab PO DAILY ondansetron HCl 4 mg PO Q12H PRN simethicone (Gas Relief (simethicone)) 125 mg PO TID-QID PRN wheat dextrin (Benefiber Healthy Shape) 5 grams PO DAILY 90 days Is last menstrual period known: Yes Last menstrual period: 07/26/25 (uses depo for control for 2 years) Do you need a note to return to daycare/school/sports/work: No HPI Comments Details: Patient is a premenopausal woman presenting for annual examination. Clinical Product Specialist concerns: Current Depo-Provera user, reports withdrawal bleed 1-2 weeks before next dose is due, she reports as tolerable at this time. She denies any contraindications to control such as: migraines with aura, history of DVT or pulmonary emboli, high blood pressure, liver disease, thrombolic disorders, Lupus, +JAXON, breast cancer, or smoking. Currently is sexually active. She denies vaginal itching or irritation. STI screening offered; she accepts. She tries to eat healthy and stays active with exercise. Last pap smear 2022, negative. [facility] Medical History Elevated ALT measurement Low HDL (under 40) Folic acid deficiency Screening for HPV (human papillomavirus) (~06/12/23) GERD (gastroesophageal reflux disease) COVID-19 vaccine series completed Cholelithiasis Anxiety and depression Surgical History History of laparoscopic cholecystectomy Family History Father No problems noted. Paternal Grandmother Brain tumor Mother No problems noted. Family/Other Dementia Hypertension Cancer Brother In good health Daughter In good health Social History Household Members Other:: minor child Housing: Condominium Are you a primary career development specialist to a significant other at home: Yes Do you presently have visiting nurse or other home services: No Alcohol intake: current Alcohol intake frequency: holidays/special occasions only Patient Tobacco Use Status: Never used Tobacco e-Cigarette/Vaping Use: Currently Using Second Hand Smoke Exposure: No Substance Use Type: Marijuana service: No Current occupational status: employed Gender identity: Female Cognitive needs: No Hearing needs: No Vision needs: No Female Reproductive History Menstrual Age of Menarche: 14 Date of last menstrual period: 07/26/25 (uses depo for control for 2 years) control method: progesterone injection Total pregnancies: 2 Number of Living Children: 1 Ab induced: 1 Date of last pap smear: 06/13/23 History of abnormal pap smear: No Review of Systems Const All systems reviewed & are unremarkable except as noted in HPI and below Reports as per HPI Eyes Reports no additional complaints ENT Reports no additional complaints Card Reports no additional complaints Resp Reports no additional complaints GI Reports as per HPI and Reports no additional complaints Reports as per HPI Musc Reports no additional complaints Skin/Breast Reports as per HPI Neuro Reports no additional complaints Psych Reports no additional complaints Endo Reports no additional complaints Gamal/Lymph Reports no additional complaints Aller/Immun Reports no additional complaints Physical Exam Vital Signs: Last Vital Signs BP 106/72 10/05/25 11:39 BMI result Body Mass Index 29.1 Const General: cooperative, healthy appearing, no acute distress, well developed and alert Orientation/consciousness: patient oriented x3 HEENT Head: Yes normal to inspection Eyes General: appearance normal, both eyes and all related structures Neck Neck: Yes normal visual inspection Thyroid: Thyroid normal Chest Chest palpation & inspection: normal inspection of the chest and other (no puckering, dimpling, peau de orange, retraction, discharge, masses) Breast/axilla inspection: normal inspection of the breasts Breast/axilla palpation: normal palpation of the breasts Resp Effort & Inspection: normal respiratory effort GI Inspection: Yes normal to inspection Palpation (GI): Soft to palpation Rectal Exam - Female: deferred General: Yes bladder normal to palpation External Female Exam: normal external appearance and normal appearance of the urethra Speculum Exam - Vagina: normal appearance of the vagina, normal palpation and normal vaginal discharge Speculum Exam - Cervix: normal appearance of the cervix and normal palpation Bimanual exam- vagina & uterus: normal bimanual exam, normal palpation, uterine size normal, bladder normal to palpation, normal palpation and non-tender Bimanual Exam- Adnexa, other: no masses Skin General skin exam: no rashes or lesions noted Rashes: no rashes Neuro General: patient oriented x3 Cognition (Neuro): normal cognition Extrem General: Yes normal to inspection Psych Attitude: cooperative Thought process: Normal thought process present Assessment & Plan Assessment & Plan (1) Depo-Provera contraceptive status: Code(s): Z30.42 - Encounter for surveillance of injectable contraceptive Category: Social Hx Plan: Continue with Depo-Provera use. control hormone use warnings: go to ER if and loss of vision, blindness, severe headache, chest pain or difficulty breathing, severe abdominal pain, or any pain or swelling in an extremity. Monitor breakthrough bleeding, if persistent or intolerable treat call the office to discuss frequency of administration with dosing. The patient expressed understanding and agreement with the plan of care. All of her questions and concerns were addressed to the best of my ability. (2) Well woman exam with routine gynecological exam: Onset Date: Unknown Code(s): Z01.419 - Encounter for gynecological examination (general) (routine) without abnormal findings Category: Medical Plan Discussed: Current recommendations for pap smears per ASCCP guidelines. Pap obtained today await results for final plan Breast awareness and periodic breast exams. Of care. BV panel and GC chlamydia obtained, blood work ordered per patient request follow up pending results. Maintain a healthy lifestyle including a well balanced diet and routine exercise. Use condoms for STI and prevention. Patient verbalizes understanding and agrees to the plan of care. She was given opportunity to ask questions and all questions were answered to the best of my ability. RTO in one year for annual obstetrics/gynecology nurse examination. This note is constructed using voice recognition software. While every effort has been made to ensure accuracy, washroom attendant errors may have been included. Orders: Orders HIV Ab/Ag Today Z20.2 - Contact with and (suspected) exposure to infections with a predominantly sexual mode of transmission Hepatitis C Antibody Reflex Today Z20.2 - Contact with and (suspected) exposure to infections with a predominantly sexual mode of transmission Hepatitis B Core Antibody Today Z20.2 - Contact with and (suspected) exposure to infections with a predominantly sexual mode of transmission CT NG by PCR Vag/Cerv Today Z11.3 - Encounter for screening for infections with a predominantly sexual mode of transmission Bacterial Vaginosis Panel Today Z11.3 - Encounter for screening for infections with a predominantly sexual mode of transmission Syphilis Screen Today Z20.2 - Contact with and (suspected) exposure to infe ctions with a predominantly sexual mode of transmission HPV High risk Today Z01.419 - Encounter for gynecological examination (general) (routine) without abnormal findings Pap Smear Today Z01.419 - Encounter for gynecological examination (general) (routine) without abnormal findings Medications: Refilled medroxyprogesterone (Depo-Provera) 150 mg IM Q12W 1 mL 4RF Coding Level of Care Code Tele New Pt Level 4 (78792) Diagnoses Depo-Provera contraceptive status Z30.42 Well woman exam with routine gynecological exam Z01.419
[2025-10-05 11:39] VITALS: BP 106/72; BMI 29.1
--- OUTSIDE RECORDS SUMMARY | 2025-10-05 15:11 | XMS_ITS | Encounter Summary ---
Author Organization [facility] Address [address] [place] [address] Phone Care Team Providers Care Coding Quality Analyst Name Role Phone Justina Weinstein MD Primary Care Provider [phone] Encounter Details Date Type Department Care Team (Late st Contact Info) Description 01/02/2012 Documentation EM Family Medicine [address] [place] [address] Family Medicine, Physician [address], [place] [id number] Social History Tobacco Use Types Packs/Day Years [...] on filedocumented in this encounter Care Teams Coding Quality Analyst Relationship Specialty Start Date End Date Justina Weinstein MD [address] [place] [id number] PCP - General 05/30/17 04/15/23 documented as of this encounter
--- OUTSIDE RECORDS SUMMARY | 2025-10-05 15:11 | XMS_ITS | Clinical Summary ---
Author Organization [facility] Address [address] [place] [address] Phone Care Team Providers Care Frame Pulley Mortising Machine Operator Name Role Phone Unavailable Primary Care Provider [...] complete this topic Procedures * Due to [place] [employer] law, this organization might not be sharing sensitive test results. Procedure Name Priority Date/Time Associated Diagnosis Comments CHLAMYDIA AND GONORRHEA, AMPLIFIED Routine 02/27/2015 4:53 PM EDT from Last 3 Months or Most Recently Relevant to Health Maintenance Results * Due to [place] state law, this organization might not be sharing sensitive test results. * Chlamydia and Gonorrhoea, Amplified (02/27/2015 4:53 PM EDT) URINE GC AMP PROBE NEGATIVE [facility] Comment: No Neisseria Gonorrhoeae RNA detected in this patient's sample (REFERENCE RANGE/NORMAL VALUE: NOT DETECTED) NOTE: This test uses executive director of marketing-mediated amplification method to detect rRNA from C.Trachomatis [...] without risk of sexual abuse. Consult the [facility] if needed. Contact phone number . Therapeutic failure or success cannot be determined with the Aptima Combo2 assay since nucleic acid may persist following appropriate antimicrobial therapy. The Centers for Disease Control and Prevention (CDC) recommends confirmatory retesting using culture or a different nucleic acid amplification test when positive results occur, if indicated. Testing performed or reported by [facility], a Service of [facility], [address] [place] [address] Toby Boss MD, PhD, Trib[employer] Member URINE CHLAMYDIA AMP PROBE NEGATIVE [facility] Comment: No Chlamydia Trachomatis RNA detected in this patient's sample (REFERENCE RANGE/NORMAL VALUE: NOT DETECTED) 02/27/2015 4:53 PM EDT Narrative [facility] - 02/27/2015 4:53 PM EDT URINE CHLAMYDIA GC AMP PROBE us Narcisa Welch MD LAB MICROBIOLOGY - GENERAL O RDERABLES Final Result [facility] [address] [place] [address], from Last 3 Months or Most Recently Relevant to Health Maintenance
--- OUTSIDE RECORDS SUMMARY | 2025-10-05 15:11 | XMS_ITS | Encounter Summary ---
Author Organization [facility] Address [address] [place] [address] Phone Care Team Providers Care Cooler Servicer Name Role Phone Justina Weinstein MD Primary Care Provider [phone] Encounter Details Date Type Department Care Team (Late st Contact Info) Description 06/05/2017 Conversion Encounter [facility] [address] [place] [address] Social History Tobacco Use Types Packs/Day Years [...] on filedocumented in this encounter Care Teams Cooler Servicer Relationship Specialty Start Date End Date Justina Weinstein MD [address] [place] [address] PCP - General 05/30/17 04/15/23 documented as of this encounter
--- OUTSIDE RECORDS SUMMARY | 2025-10-05 15:11 | XMS_ITS | Encounter Summary ---
Author Organization [facility] Address [address] [place] [address] Phone Care Team Providers Care Filling Hauler Weaving Name Role Phone Justina Weinstein MD Primary Care Provider [phone] Encounter Details Date Type Department Care Team (Late st Contact Info) Description 05/22/2012 Documentation EM Family Medicine [address] [place] [address] Family Medicine, Physician [address], [place] [phone] Social History Tobacco Use Types Packs/Day Years [...] on filedocumented in this encounter Care Teams Filling Hauler Weaving Relationship Specialty Start Date End Date Justina Weinstein MD [address] [place] [id number] PCP - General 05/30/17 04/15/23 documented as of this encounter
== END 2025-10-05 12:20 | disposition home or self-care (01) ==
LOC: HO.HWS 11:26
PROVIDERS: PCP Internal Medicine; Visit Provider Advanced Practice Midwife
DX: Z01.419 Encounter for gynecological examination (general) (routine) without abnormal findings (principal); Z30.49 Encounter for surveillance of other contraceptives
CPT/HCPCS: 99395; 99459

== ENCOUNTER 2025-10-05 12:36 | Outpatient (REF) | payer OTHER, SELFPAY ==
[2025-10-06 02:28] LABS: Bacterial Vaginosis PCR NEGATIVE (Negative); Candida Group PCR DETECTED (Not Detect); Candida glab krusei PCR NOT DETECTED (Not Detect); Trichomonas vaginalis PCR NOT DETECTED (Not Detect)
[2025-10-06 02:59] LABS: CT PCR NOT DETECTED (Not Detect.); NG PCR NOT DETECTED (Not Detect.)
== END 2025-10-05 12:37 | disposition home or self-care (01) ==
LOC: HO.LNP 12:36
PROVIDERS: Visit Provider Advanced Practice Midwife
DX: Z01.419 Encounter for gynecological examination (general) (routine) without abnormal findings (principal); Z20.2 Contact with and (suspected) exposure to infections with a predominantly sexual mode of transmission
CPT/HCPCS: 81515; 87491; 87591; 87626; 88175